=== PATIENT | male | born 1980 | race Caucasian/White ===

== ENCOUNTER 2019-01-11 12:01 | Inpatient (IN) ==
[2019-01-11 13:00] LABS: Appearance Urine Turbid (Clear); Bacteria Urine Automated Negative (Negative); Bilirubin Urine Negative (Negative); Blood Urine Negative (Negative); Color Urine Orange; Glucose Urine UA Negative (Negative); Ketones Urine Negative (Negative); Leukocyte Esterase Urine Negative (Negative); Nitrite Urine Negative (Negative); Protein Urine Trace (Negative); RBC Urine Automated 0-4 /hpf (0-4); Specific Gravity Urine 1.032 (1.000-1.030); Urobilinogen Urine Negative (Negative)
[2019-01-11 13:08] LABS: Basophils # (auto) 0.06 K/uL (0-0.2); Basophils % (auto) 0.9 %; Eosinophils # (auto) 0.06 K/uL (0-0.5); Eosinophils % (auto) 0.9 %; Hematocrit (blood only) 43.7 % (42-52); Hemoglobin 15.5 g/dL (14.0-18.0); Immature Granulocytes # (auto) 0.02 K/uL (0.00-0.02); Immature Granulocytes % (auto) 0.3 %; Lymphocytes # (auto) 2.29 K/uL (1.2-3.4); Lymphocytes % (auto) 33.4 %; Mean Corpuscular Hgb Conc 35.5 g/dL (32-36); Mean Corpuscular Volume 84.4 fL (80-100); Mean Platelet Volume 9.4 fL (7.4-10.4); Monocytes # (auto) 0.52 K/uL (0.11-0.59); Monocytes % (auto) 7.6 %; Neutrophils % (auto) 56.9 %; Platelet Count 233 K/uL (130-400); RDW Coefficient of Variation 12.4 % (11.5-14.5); RDW Standard Deviation 37.7 fL (36.4-46.3); Red Blood Count 5.18 M/uL (4.7-6.1); White Blood Count 6.85 K/uL (4.8-10.8)
[2019-01-11 13:25] LABS: Albumin Level 4.2 gm/dl (3.4-5.0); BUN Creatinine Ratio 16.3 (10-20); Calcium 9.4 mg/dl (8.5-10.1); Creatinine Clr Calc Pharmacy 107.7 ml/min; Est GFR (African American) 107.3; Est GFR (Non-African American) 92.6; Potassium 3.8 mmol/L (3.5-5.1)
[2019-01-11 13:30] LABS: Amphetamines+Metham, Urine Neg (Neg); Barbiturates, Urine Neg (Neg); Benzodiazepine, Urine Neg (Neg); Cocaine, Urine Neg (Neg); MDMA (Ecstacy), Urine Neg (Neg); Methadone, Urine Neg (Neg); Opiate, Urine Neg (Neg); Phencyclidine, Urine Neg (Neg)
[2019-01-11 13:35] LABS: Albumin Globulin Ratio 1.1 (0.9-2); Bilirubin,Total 0.7 mg/dl (0.2-1); Globulin 3.8 gm/dl (2.5-4.0)
[2019-01-11 13:41] LABS: Acetaminophen < 2 ug/ml (10-30); Salicylate < 1.7 mg/dl (2.8-20)
--- NOTE | 2019-01-11 13:44 | Emergency Department Note ---
Entered by Marcy Eastman acting as a scribe for History of Present Illness General Chief complaint: Mental Health Evaluation Stated complaint: MHID Source: patient History of Present Illness Onset (ago): week(s) 3 Location: left and right (generalized) Pain Consistency: + other (increased) Maximum Pain Intensity: 8 Quality: + other (suicidal thoughts) Associated symptoms: + other (depression) The patient is a 38 year old male who presents to the Emergency Room with complaints of increased suicidal thoughts over the last 3 weeks. The patient reports he has been under a lot of work related stress. 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 He notes he has been dealing with these emotions for a few years but it worsened 3 weeks ago. He reports he owns guns and if he is going to it's going to be quick and painless. He note he has not put much detailed thought into harming himself. He states "3 weeks ago, I was driving to work and felt that I had three choices -- to keep driving to work, turn around and end my life, or call my and tell her we need to talk." He notes he chose to call his and they had a long talk about everything that has been bothering him. Allergies Allergy/AdvReac Type Severity Reaction Status Date / Time No Known Drug Allergies Allergy Unknown . Verified 04/27/16 06:39 CAT Allergy Unknown WATTERY Uncoded 04/25/16 13:18 EYES AND SNEEZING Past Med/Surg History Medical History No significant medical problems Social History Preferred Language: Czech Communication Ability: Effective Multicultural Services Librarian Required: No Beliefs That Will Affect Care: None Feels Safe at Home: Yes Smoking Status: Never smoker Review of Systems See HPI for pertinent positives & negatives. and A total of 10 systems reviewed and were otherwise negative Physical Exam Vital Signs Vital Signs - 24 hr 01/11/19 12:07 01/11/19 13:45 Temperature 36.9 C Temperature Source Oral Sepsis Recent Fever Within 48 Hours No Sepsis Action Taken by Nursing No Action Required Pulse Rate 97 H Pulse Rate [Left Finger] 85 Respiratory Rate 18 18 Respiratory Effort / Characteristics Non-Labored Spontaneous Respiratory Depth Normal Respiratory Pattern Regular Blood Pressure 150/112 H Blood Pressure [Left Arm] 154/102 H Blood Pressure Mean 124 Blood Pressure Mean [Left Arm] 119 Blood Pressure Position [Left Arm] Sitting Pulse Oximetry 98 95 Oxygen Delivery Method Room Air GENERAL: Awake, alert, well-appearing, in no distress HENT: Normocephalic, atraumatic. EYES: Normal conjunctiva. Sclera non-icteric. RESPIRATORY: Clear to auscultation. No wheezes. Normal respiratory effort. CARDIAC: Normal rate. Normal rhythm. Extremities warm and well perfused. GI: Soft, non-distended. No tenderness to palpation RECTAL: Deferred. MUSCULOSKELETAL: Atraumatic. Chest examination reveals no tenderness. NEURO: Normal sensorium. No sensory or motor deficits noted. No facial droop. SKIN: Warm and dry. No rash or jaundice noted. PSYCH: Endorses SI. Denies HI or hallucinations. Good insight. Course 1220: The patient was evaluated in room A5. A complete history and physical exam was performed. 1445: The patient is medically cleared and has been accepted to [address] [place] [address]. Administered Medications Discontinued Medications Clonidine HCl (Catapres) 0.1 mg PO NOW ONE Stop: 01/11/19 17:07 Last Admin: 01/11/19 17:58 Dose: 0.1 mg Documented by: [id number] Medical Decision Making Differential Diagnosis Etiologies such as mood disorder, infection, hypoglycemia, electrolyte abnormalities, cardiac sources, intracerebral event, toxicologic, neurologic, as well as others were entertained. Medical Records Attestation: I reviewed the patient's medical records. Home Medications Current Medication List: was personally reviewed by me Laboratory Data Attestation: I reviewed the patient's lab results. Result diagrams: 01/11/19 12:51 01/11/19 12:51 Lab Results 01/11/19 01/11/19 01/11/19 Range/Units 12:19 12:19 12:51 WBC 6.85 (4.8-10.8) K/uL RBC 5.18 (4.7-6.1) M/uL Hgb 15.5 (14.0-18.0) g/dL Hct 43.7 (42-52) % MCV 84.4 (80-100) fL MCH 29.9 (25-34) pg MCHC 35.5 (32-36) g/dL RDW Std Deviation 37.7 (36.4-46.3) fL RDW Coeff of Mary 12.4 (11.5-14.5) % Plt Count 233 (130-400) K/uL MPV 9.4 (7.4-10.4) fL Immature Gran % (Auto) 0.3 % Neut % (Auto) 56.9 % Lymph % (Auto) 33.4 % [place] % (Auto) 7.6 % Eos % (Auto) 0.9 % Baso % (Auto) 0.9 % Immature Gran # (Auto) 0.02 (0.00-0.02) K/uL Neut # (Auto) 3.90 (1.4-6.5) K/uL Lymph # (Auto) 2.29 (1.2-3.4) K/uL [place] # (Auto) 0.52 (0.11-0.59) K/uL Eos # (Auto) 0.06 (0-0.5) K/uL Baso # (Auto) 0.06 (0-0.2) K/uL Sodium (136-145) mmol/L Potassium (3.5-5.1) mmol/L Chloride (98-107) mmol/L Carbon Dioxide (21-32) mmol/L Anion Gap (3-11) BUN (7-18) mg/dl Creatinine (0.6-1.4) mg/dl Est Cr Clr Drug Dosing ml/min Est GFR ( Amer) Est GFR (Non-Af Amer) BUN/Creatinine Ratio (10-20) Glucose (70-99) mg/dl Calcium (8.5-10.1) mg/dl Total Bilirubin (0.2-1) mg/dl AST (15-37) U/L ALT (12-78) U/L Alkaline Phosphatase (45-117) U/L Total Protein (6.4-8.2) gm/dl Albumin (3.4-5.0) gm/dl Globulin (2.5-4.0) gm/dl Albumin/Globulin Ratio (0.9-2) TSH (0.300-4.500) uIu/ml Urine Color [place] Urine Appearance Turbid A (Clear) Urine pH 5.0 (4.5-7.5) Ur Specific [place] 1.032 H (1.000-1.030) Urine Protein Trace H (Negative) Urine Glucose (UA) Negative (Negative) Urine Ketones Negative (Negative) Urine Blood Negative (Negative) Urine Nitrite Negative (Negative) Urine Bilirubin Negative (Negative) Urine Urobilinogen Negative (Negative) Ur Leukocyte Esterase Negative (Negative) Urine WBC (Auto) 1-5 (0-5) /hpf Urine RBC (Auto) 0-4 (0-4) /hpf U Hyaline Cast (Auto) 5-10 H (0-5) /lpf U Epithel Cells (Auto) 10-20 H (0-5) /lpf Urine Bacteria (Auto) Negative (Negative) Salicylates (2.8-20) mg/dl Urine Opiates Screen Neg (Neg) Ur Methadone, Qual Neg (Neg) Acetaminophen (10-30) ug/ml Urine Barbiturates Neg (Neg) Ur Phencyclidine (PCP) Neg (Neg) U Amphetamin/Meth Scrn Neg (Neg) MDMA (Ecstasy) Screen Neg (Neg) U Benzodiazepines Scrn Neg (Neg) Ur Cocaine Metabolite Neg (Neg) U Marijuana (THC) Screen Neg (Neg) Ethyl Alcohol mg/dL (0-3) mg/dl 01/11/19 01/11/19 01/11/19 Range/Units 12:51 12:51 12:51 WBC (4.8-10.8) K/uL RBC (4.7-6.1) M/uL Hgb (14.0-18.0) g/dL Hct (42-52) % MCV (80-100) fL MCH (25-34) pg MCHC (32-36) g/dL RDW Std Deviation (36.4-46.3) fL RDW Coeff of Mary (11.5-14.5) % Plt Count (130-400) K/uL MPV (7.4-10.4) fL Immature Gran % (Auto) % Neut % (Auto) % Lymph % (Auto) % [place] % (Auto) % Eos % (Auto) % Baso % (Auto) % Immature Gran # (Auto) (0.00-0.02) K/uL Neut # (Auto) (1.4-6.5) K/uL Lymph # (Auto) (1.2-3.4) K/uL [place] # (Auto) (0.11-0.59) K/uL Eos # (Auto) (0-0.5) K/uL Baso # (Auto) (0-0.2) K/uL Sodium 139 (136-145) mmol/L Potassium 3.8 (3.5-5.1) mmol/L Chloride 108 H (98-107) mmol/L Carbon Dioxide 24 (21-32) mmol/L Anion Gap 7.0 (3-11) BUN 17 (7-18) mg/dl Creatinine 1.01 (0.6-1.4) mg/dl Est Cr Clr Drug Dosing 107.7 ml/min Est GFR ( Amer) 107.3 Est GFR (Non-Af Amer) 92.6 BUN/Creatinine Ratio 16.3 (10-20) Glucose 101 H (70-99) mg/dl Calcium 9.4 (8.5-10.1) mg/dl Total Bilirubin 0.7 (0.2-1) mg/dl AST 17 (15-37) U/L ALT 46 (12-78) U/L Alkaline Phosphatase 56 (45-117) U/L Total Protein 8.0 (6.4-8.2) gm/dl Albumin 4.2 (3.4-5.0) gm/dl Globulin 3.8 (2.5-4.0) gm/dl Albumin/Globulin Ratio 1.1 (0.9-2) TSH 1.570 (0.300-4.500) uIu/ml Urine Color Urine Appearance (Clear) Urine pH (4.5-7.5) Ur Specific [place] (1.000-1.030) Urine Protein (Negative) Urine Glucose (UA) (Negative) Urine Ketones (Negative) Urine Blood (Negative) Urine Nitrite (Negative) Urine Bilirubin (Negative) Urine Urobilinogen (Negative) Ur Leukocyte Esterase (Negative) Urine WBC (Auto) (0-5) /hpf Urine RBC (Auto) (0-4) /hpf U Hyaline Cast (Auto) (0-5) /lpf U Epithel Cells (Auto) (0-5) /lpf Urine Bacteria (Auto) (Negative) Salicylates < 1.7 L (2.8-20) mg/dl Urine Opiates Screen (Neg) Ur Methadone, Qual (Neg) Acetaminophen < 2 L (10-30) ug/ml Urine Barbiturates (Neg) Ur Phencyclidine (PCP) (Neg) U Amphetamin/Meth Scrn (Neg) MDMA (Ecstasy) Screen (Neg) U Benzodiazepines Scrn (Neg) Ur Cocaine Metabolite (Neg) U Marijuana (THC) Screen (Neg) Ethyl Alcohol mg/dL < 3.0 (0-3) mg/dl Blood Pressure Blood Pressure Findings: Elevated blood pressure Blood Pressure Disposition: elevated BP felt to be situational MDM Narrative Patient is a 38-year-old gentleman presenting today with some suicidal thoughts. States she is been under a significant amount of stress in his personal life and at work and feeling suicidal for several weeks. Does not carry a formal diagnosis of depression but states he has been having it for a long time. Patient denies attempting but states he has the urge to commit suicide and is having trouble controlling himself. Denies any specific inciting event for this. Basic laboratory studies were obtained for medical clearance. Psychiatric medical case manager assisted with evaluation. Patient denies any hallucinations or HI. States he has thoughts of possibly shooting himself. Patient agreeable for voluntary inpatient treatment. Medically cleared and referrals were made for inpatient treatment.Evaluated by 3 S. and admitted there for further care of his suicidal thoughts on 201. Impression & Plan Depression, Suicidal thoughts Discharge Plan Visit Data *Final* Discharge Date/Time: 01/11/19 14:51 Chief Complaint: Mental Health Evaluation Stated Complaint: MHID ED Provider: Joshua Wilcox Discharge Problem: Depression, Suicidal thoughts Patient Disposition: Admitted As Inpatient Discharge Instructions Interventions: ED Discharge Assessment Last Done: 01/11/19 14:51 Discharge Problem: Depression Qualifiers: Depression Type: unspecified Qualified Code(s): F32.9 - Major depressive disorder, single episode, unspecified The grace's documentation has been prepared under my direction and personally reviewed by me in its entirety. I confirm that the note above accurately reflects all work, treatment, procedures, and medical decision making performed by me.
[2019-01-11] MEDS ORDERED: ALUMINUM/MAGNESIUM SUSP 30 ML UDC PO PRN (14:27)
[2019-01-11] MEDS ORDERED: ACETAMINOPHEN 325 MG TAB PO PRN (14:27)
[2019-01-11] MEDS ORDERED: SODIUM CHLORIDE 0.65% NA SOLN 45 ML (OCEAN) PRN (14:27)
[2019-01-11] MEDS ORDERED: MAGNESIUM HYDROXIDE SUSP 30 ML UDC PO PRN (14:27)
[2019-01-11] MEDS ORDERED: BISMUTH SUBSALICYLATE PER ML OMNICELL CHARGE PO PRN (14:27)
[2019-01-11] MEDS ORDERED: cloNIDine HCl 0.1 MG TAB PO ONE (17:06)
--- NOTE | 2019-01-12 08:07 | History & Physical ---
Date of Service January 12, 2019 Impression / Recommendations (1) Suicidal thoughts: 12/12 -continue voluntary hospitalization. -Suicide checks for safety. -Work on discharge safety plan. -Has firearms at home, stated plan was in place for father to remove them. Staff to confirm with father that guns are secured prior to discharge. -Refer for outpatient treatment, and review crisis plan/emergency contacts. Present on Admission?: Yes (2) Depression: 01/11 -reviewed diagnoses and treatment recommendations, including medications and therapy. -Encourage participation in groups and therapy; work on healthy coping skills. -Reviewed risks, benefits, and side effects of sertraline and gave him an UpToDate patient handout. Start 25mg daily, increase to 50mg tomorrow, and titrate as tolerated. -Refer for outpatient psychiatric care and therapy. -Family meeting with . 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 Reviewed that SSRI may damped sex drive as well. Depression Type: unspecified Qualified Code(s): F32.9 - Major depressive disorder, single episode, unspecified Present on Admission?: Yes (3) Anxiety: 01/12 - symptoms of JAYME and panic. Start SSRI as above, work on healthy coping skills, and refer to therapy. -Hydroxyzine as needed for sleep and anxiety. Present on Admission?: Yes (4) Hypertension: 01/12 -hypertensive in the emergency room, with blood pressure of 167/108 upon arrival to the unit. Received one-time dose of clonidine. Patient reports he was told in the past he had hypertension and might need medication, but does not have a PCP and has not been monitored for this. Spoke with the hospitalist, Dr. Copeland, who recommended monitoring BP today (as normalized), and trial of lisinopril 10mg if he again has HTN. He will need to be referred to PCP for outpatient treatment. Present on Admission?: Yes Inventory Assets Strengths: Willing for treatment, stable housing, supportive family Needs: Treatment for depression and hypertension, referrals for outpatient treatment Risk Factors Assessment Male: Yes : Yes Do You Have Access To A Gun?: Yes Health Problems: No Mental Health Diagnoses: Yes Substance Use Disorders: No Previous Attempt: No Family History of Suicide: Yes Previous Psychiatric Hospitalization: No Hopelessness: Yes Smoker: No Protective Factors Assessment : Yes Responsible for Young Children: Yes Employed: No (Recently closed business) Stable Relationships: Yes Supportive Family: Yes Good Rapport with Provider: No Psychiatric History Identifying Data SNEHA LOVELACE is a 38-year-old M who lives in [place] with his and 12-year-old daughter, has no medical or psychiatric history, and was admitted on 01/11/19 14:28 on a 201 voluntary commitment for depression and suicidality. Chief Complaint "I think it's anxiety and stress, and depression is a side effect of that...it's been a long time coming". History of Present Illness Patient presented to the ER 01/11/2019 reporting worsening depression and increasing suicidal thoughts over the past 3 weeks. 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 This is creating financial strain. He endorsed suicidal thoughts, stating he would want to be quick and painless, and reported owning firearms. 3 weeks prior to presentation he was driving to work and "felt that I had 3 choices: To keep driving to work, turn around and and my life, or call my and tell her we need to talk." He decided to talk to her , and disclosed how he had been struggling. He denies ever having mental health treatment, does not have a PCP, and CBC, CMP, UDS, and TSH were normal. UA was turbid with elevated specific gravity, trace protein, and 10-20 epithelial cells. He was hypertensive with BP 150/112 in the ER, and as high as 167/108 yesterday afternoon, which has now normalized after receiving a one-time dose of clonidine 0.1 mg last evening. He reported that he had been told he needed medical treatment for blood pressure and cholesterol, but had not seen a doctor because "I hate to go to doctors." Hospitalist consult was requested, but he has not yet been seen. He reports long-standing anxiety and stress for a couple of years, with recent worsening depression and suicidal thoughts over the past several weeks. He endorses sadness, crying spells, hopelessness, helplessness, self devaluation, lack of motivation, decreased sleep (5 hours of broken sleep/night, does not feel rested), and high anxiety particularly in the morning. Anxiety has also worsened over the past several weeks, feels short of breath, nauseated, with sweating, palpitations, and weakness when he wakes up. He reports thinking that "all I want to do is go back to sleep and never wake up" each morning for the past few weeks. He endorses panic attacks lasting 10-20 minutes that have occurred 2 or 3 times over the past 3 weeks. 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 He is in the process of closing his business, stating it was "either end the business or end me." He reports feeling "absolutely miserable for years," and had not been been open with others about it, until he told his 3 weeks ago. That day he had gotten out his life insurance policy and checked it "to make sure everyone would be taken care of." He says he wanted to "completely open up to her, which is really difficult for me, but if I killed myself, I wanted her to know why." They decided to talk to their families and supports "to get their ideas," but did not seek treatment and "continued to muddle through." Yesterday he felt "the inevitable weight of the world on my shoulders, a thousand concerns..." He decided suicide would be the inevitable conclusion and that he needed to get help, so came to the ER with the support of his family. He reports he has always been "very guarded" and doesn't disclose much to others, which has caused problems in his relationships, but notes mood has improved since he opened up to his . He denies ever making a suicide attempt but says he's always known that if he was going to kill himself, it would be with a gun, and that he owns multiple guns. He denies symptoms of ericka, psychosis, OCD, PTSD. 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 He says "it's an addiction" for him and started when he was 4.5 years old and he found his father's [employer] magazines, "and I realized I really liked what I saw on those pages." He describes a "build up" when he tries to abstain and feels unable to stop. He has used prostitutes in the past prior to getting , but denies other dangerous behaviors. Past Psychiatric History Previous Psych History: None Current Psychiatric Diagnosis: Depression, NOS Outpatient Services: None Previous Psych Admissions: None Do You Have Access To A Gun?: Yes History of Previous Suicide Attempt: No Past Medication Trials: None Allergies Allergy/AdvReac Type Severity Reaction Status Date / Time No Known Drug Allergies Allergy Unknown . Verified 04/27/16 06:39 CAT Allergy Unknown WATTERY Uncoded 04/25/16 13:18 EYES AND SNEEZING Family History Family History of: Suicide Completion Family Mental Health History Comment: Uncle completed suicide with a gun Alcohol History Hx of Alcohol Use Over the Past 12 Months: No AUDIT Total Score: 0 Smoking Use Have You Smoked or Used Tobacco Products in the Last 30 Days: No Smoking Status: Never smoker Substance History Hx of Prescription Med Misuse Over the Past 12 Months: No Hx of Over the Counter Med Misuse Over the Past 12 Months: No Hx of Inhalent Misuse Over the Past 12 Months: No Hx of Organic Substance Use Over the Past 12 Months: No Hx of Illegal Substances/Street Drug Use Over Past 12 Months: No Problems as a Result of Past Substance Use: None Identified Personal History Living Arrangements: Home Living Arrangements Comments: In [place] with and 12-year-old daughter Childhood: Grew up in [place], raised by both parents and has 1 older brother. Highest Grade Completed: College (BA from [employer] in history) Employment Status: Unemployed Marital Status: Number Of Children: 12-year-old daughter Beliefs That Will Affect Care: None Current Legal Problems: No Hx Legal Problems: No Hx Traumatic Life Events: No Patient History Medical History No significant medical problems Social History Preferred Language: Sami Communication Ability: Effective Wool Classer Required: No Beliefs That Will Affect Care: None Feels Safe at Home: Yes Smoking Status: Never smoker Review of Systems Review of Systems: All systems reviewed & are unremarkable except as noted in HPI & below Physical Exam Psychiatric: Orientation: alert, oriented x 3 and cooperative Apperance: appropriately dressed and appropriately groomed Eye Contact: + fair eye contact Motor Behavior: steady gait and station and no abnormal motor movements Speech: normal rate/rhythm/volume of speech Affect: + depressed affect and + anxious affect Mood: + depressed mood and + anxious mood Thought Process: goal directed thought process Thought Content: reality based without delusions Suicidal Thoughts: + reports suicidal thoughts Homicidal Thoughts: denies homicidal thoughts Hallucinations: no auditory hallucinations and no visual hallucinations Cognition: recent memory grossly intact, remote memory grossly intact, attention grossly intact and language grossly intact Estimated Intelligence: consistent with education level Insight: + fair insight Judgement: + fair judgement Vital Signs (Past 24 Hours): Last Vital Signs Temp 36.4 C L 01/12/19 06:44 Pulse 86 01/12/19 06:45 Resp 18 01/12/19 06:44 BP 126/89 01/12/19 06:45 Pulse Ox 97 01/11/19 14:51 Exam Statement: A physical exam was performed in the ER prior to admission to the unit by Dr. Joshua Wilcox. I accept that physical as correct/medical clearance for the inpatient physical exam. Results & Data Laboratory Results Laboratory Results - last 24 hr 01/11/19 01/11/19 01/11/19 12:19 12:19 12:51 WBC 6.85 RBC 5.18 Hgb 15.5 Hct 43.7 MCV 84.4 MCH 29.9 MCHC 35.5 RDW Std Deviation 37.7 RDW Coeff of Mary 12.4 Plt Count 233 MPV 9.4 Immature Gran % (Auto) 0.3 Neut % (Auto) 56.9 Lymph % (Auto) 33.4 [place] % (Auto) 7.6 Eos % (Auto) 0.9 Baso % (Auto) 0.9 Immature Gran # (Auto) 0.02 Neut # (Auto) 3.90 Lymph # (Auto) 2.29 [place] # (Auto) 0.52 Eos # (Auto) 0.06 Baso # (Auto) 0.06 Sodium Potassium Chloride Carbon Dioxide Anion Gap BUN Creatinine Est Cr Clr Drug Dosing Est GFR ( Amer) Est GFR (Non-Af Amer) BUN/Creatinine Ratio Glucose Calcium Total Bilirubin AST ALT Alkaline Phosphatase Total Protein Albumin Globulin Albumin/Globulin Ratio TSH Urine Color [place] Urine Appearance Turbid A Urine pH 5.0 Ur Specific [place] 1.032 H Urine Protein Trace H Urine Glucose (UA) Negative Urine Ketones Negative Urine Blood Negative Urine Nitrite Negative Urine Bilirubin Negative Urine Urobilinogen Negative Ur Leukocyte Esterase Negative Urine WBC (Auto) 1-5 Urine RBC (Auto) 0-4 U Hyaline Cast (Auto) 5-10 H U Epithel Cells (Auto) 10-20 H Urine Bacteria (Auto) Negative Salicylates Urine Opiates Screen Neg Ur Methadone, Qual Neg Acetaminophen Urine Barbiturates Neg Ur Phencyclidine (PCP) Neg U Amphetamin/Meth Scrn Neg MDMA (Ecstasy) Screen Neg U Benzodiazepines Scrn Neg Ur Cocaine Metabolite Neg U Marijuana (THC) Screen Neg Ethyl Alcohol mg/dL 01/11/19 01/11/19 01/11/19 12:51 12:51 12:51 WBC RBC Hgb Hct MCV MCH MCHC RDW Std Deviation RDW Coeff of Mary Plt Count MPV Immature Gran % (Auto) Neut % (Auto) Lymph % (Auto) [place] % (Auto) Eos % (Auto) Baso % (Auto) Immature Gran # (Auto) Neut # (Auto) Lymph # (Auto) [place] # (Auto) Eos # (Auto) Baso # (Auto) Sodium 139 Potassium 3.8 Chloride 108 H Carbon Dioxide 24 Anion Gap 7.0 BUN 17 Creatinine 1.01 Est Cr Clr Drug Dosing 107.7 Est GFR ( Amer) 107.3 Est GFR (Non-Af Amer) 92.6 BUN/Creatinine Ratio 16.3 Glucose 101 H Calcium 9.4 Total Bilirubin 0.7 AST 17 ALT 46 Alkaline Phosphatase 56 Total Protein 8.0 Albumin 4.2 Globulin 3.8 Albumin/Globulin Ratio 1.1 TSH 1.570 Urine Color Urine Appearance Urine pH Ur Specific [place] Urine Protein Urine Glucose (UA) Urine Ketones Urine Blood Urine Nitrite Urine Bilirubin Urine Urobilinogen Ur Leukocyte Esterase Urine WBC (Auto) Urine RBC (Auto) U Hyaline Cast (Auto) U Epithel Cells (Auto) Urine Bacteria (Auto) Salicylates < 1.7 L Urine Opiates Screen Ur Methadone, Qual Acetaminophen < 2 L Urine Barbiturates Ur Phencyclidine (PCP) U Amphetamin/Meth Scrn MDMA (Ecstasy) Screen U Benzodiazepines Scrn Ur Cocaine Metabolite U Marijuana (THC) Screen Ethyl Alcohol mg/dL < 3.0 Current Inpatient Medications Current Inpatient Medications: Current Inpatient Medications Acetaminophen (Tylenol) 650 mg PO Q4H PRN PRN Reason: Headache or Minor Fever Stop: 02/10/19 14:26 Al Hydrox/Mg Hydrox/Simethicone (Maalox) 30 ml PO Q4H PRN PRN Reason: GI Upset Stop: 02/10/19 14:26 Bismuth Subsalicylate (Kaopectate) 15 ml PO PRN PRN PRN Reason: Loose Stool Stop: 02/10/19 14:26 Hydroxyzine HCl (Vistaril) 50 mg PO HSZ PRN PRN Reason: Insomnia Stop: 02/10/19 14:26 Hydroxyzine HCl (Vistaril) 25 mg PO Q4H PRN PRN Reason: Anxiety Stop: 02/10/19 14:26 Magnesium Hydroxide (Milk Of Magnesia) 30 ml PO DAILY PRN PRN Reason: Heartburn Stop: 02/10/19 14:26 Sodium Chloride ([place] Nasal) 1 - 2 sprays NA PRN PRN PRN Reason: Nasal Dryness/Congestion Stop: 02/10/19 14:26 CPT Code CPT Code Initial Hospital Care: [id number]
[2019-01-12] MEDS ORDERED: SERTRALINE HCL 50 MG TABLET PO ONE (10:46)
[2019-01-13] MEDS: SERTRALINE HCL 50 MG TABLET PO SCH (08:16)
[2019-01-13] MEDS: LISINOPRIL 10 MG TAB PO SCH (10:47)
--- NOTE | 2019-01-13 10:55 | Psychiatric Progress Note ---
Date of Service January 13, 2019 Impression / Recommendations Impression 38-year-old male admitted voluntarily for worsening depression, anxiety and suicidal ideation. Participated in family meeting with yesterday. 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 Encouraged hydroxyzine as needed for anxiety. Continue sertraline titration as tolerated; received first 50mg dose this morning. Inpatient psychiatric hospitalization is medically necessary given ongoing outpatient stressors, need for further medication adjustments, and need to observe for improvement in mood and anxiety. Pt remains at high risk of harm to self if discharged prematurely. (1) Suicidal thoughts: 01/12 -continue voluntary hospitalization. -Suicide checks for safety. -Work on discharge safety plan. -Has firearms at home, stated plan was in place for father to remove them. Staff to confirm with father that guns are secured prior to discharge. -Refer for outpatient treatment, and review crisis plan/emergency contacts. (2) Depression: 01/12 -reviewed diagnoses and treatment recommendations, including medicat ions and therapy. -Encourage participation in groups and therapy; work on healthy coping skills. -Reviewed risks, benefits, and side effects of sertraline and gave him an UpToDate patient handout. Start 25mg daily, increase to 50mg tomorrow, and titrate as tolerated. -Refer for outpatient psychiatric care and therapy. -Family meeting with . 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 Reviewed that SSRI may damped sex drive as well. 01/13 - Continue sertraline at 50mg qAM - consider further titration - family meeting with yesterday, supportive but ongoing discussion and collaboration will be necessary (3) Anxiety: 01/12 - symptoms of JAYME and panic. Start SSRI as above, work on healthy coping skills, and refer to therapy. -Hydroxyzine as needed for sleep and anxiety. 01/13 - Reviewed available hydroxyzine for anxiety and sleep - Suggested prn hydroxyzine for sleep tonight, as slept only two hours last evening (4) Hypertension: 01/12 -hypertensive in the emergency room, with blood pressure of 167/108 upon arrival to the unit. Received one-time dose of clonidine. Patient reports he was told in the past he had hypertension and might need medication, but does not have a PCP and has not been monitored for this. Spoke with the hospitalist, Dr. Copeland, who recommended monitoring BP today (as normalized), and trial of lisinopril 10mg if he again has HTN. He will need to be referred to PCP for outpatient treatment. 01/13 - Pt started on lisinopril 10mg starting this morning - continue to monitor BP, titrate lisinopril as needed Inventory Assets Strengths: Willing for treatment, stable housing, supportive family Needs: Treatment for depression and hypertension, referrals for outpatient treatment Risk Factors Assessment Male: Yes : Yes Do You Have Access To A Gun?: Yes Health Problems: No Mental Health Diagnoses: Yes Substance Use Disorders: No Previous Attempt: No Family History of Suicide: Yes Previous Psychiatric Hospitalization: No Hopelessness: Yes Smoker: No Protective Factors Assessment : Yes Responsible for Young Children: Yes Employed: No (Recently closed business) Stable Relationships: Yes Supportive Family: Yes Good Rapport with Provider: No Interval History Identifying Information SNEHA LOVELACE is a 38-year-old M who lives in [place] with his and 12-year-old daughter, has no medical or psychiatric history, and was admitted on 01/11/19 14:28 on a 201 voluntary commitment for depression and suicidality. Chief Complaint "Um, yesterday was ok. I'll tell you, I had a terrible sleep last night. One of the three worst nights of sleep in my life." Review of Systems Notes Constitutional: reports receiving only 2 hours of sleep last night; denies fatigue presently Cardiovascular: denied Respiratory: denied Gastrointestinal: denied Neurological: denied Psychiatric: denies symptoms other than stated above Total of at least 10 systems reviewed, pertinent positives as above and in HPI. Sleep Information Total Hours of Sleep: 7.25 Sleep Comments: pt on q-15 minute checks Meal Information Percent Meal Consumed - Breakfast: 100 Percent Meal Consumed - Lunch: 100 Percent Meal Consumed - Dinner: 100 Subjective Subjective Patient was seen & assessed and interval progress reviewed with Treatment Team. Staff reports the patient participated in a family meeting with his yesterday. was supportive overall, but was described to be somewhat withdrawn as well. Patient's business will be closing, and will be handling affairs until patient feels capable. Patient was seen today to assess progress since admission. He states that he had a rather decent day yesterday, but sleep last evening was not good. Patient reports receiving a total of 2 hours of sleep, feeling he was overly anxious "could not hold onto any thoughts." Reviewed hydroxyzine is an available medication for anxiety as needed. Encouraged patient to continue to monitor sleep, the patient was understanding that this may not be a reaction to the initiation of sertraline. Patient admits to this provider that he is experiencing increased anxiety today, as it is "the first business day since I have been here." Patient is concerned about his customers reactions when they learned that his business is closing, but feels he was able to avoid this anxiety previously as it was the weekend. Patient was agreeable to utilizing as needed hydroxyzine throughout the day for this purpose as well. Reviewed plan to initiate lisinopril to manage persistent hypertension. Patient was agreeable to this medication change as previously discussed. Patient denies SI today, but does admit that his mood and anxiety have worsened somewhat. Patient denies any other specific needs or concerns at this time. Physical Exam Psychiatric Orientation: alert, oriented x 3 and cooperative Apperance: appropriately dressed and appropriately groomed Eye Contact: good eye contact Motor Behavior: steady gait and station and no abnormal motor movements Speech: normal rate/rhythm/volume of speech Affect: + anxious affect Mood: + anxious mood ("I am noticing that I am a lot more anxious today") Thought Process: goal directed thought process and clear/coherent thought process Thought Content: reality based without delusions Suicidal Thoughts: denies suicidal thoughts Homicidal Thoughts: denies homicidal thoughts Hallucinations: no auditory hallucinations and no visual hallucinations Cognition: attention grossly intact and language grossly intact Estimated Intelligence: consistent with education level Insight: + fair insight Judgement: + fair judgement Vital Signs (Past 24 Hours) Last Vital Signs Temp 36.7 C 01/13/19 06:47 Pulse 99 H 01/13/19 06:48 Resp 18 01/13/19 06:47 BP 142/110 H 01/13/19 06:48 Pulse Ox 97 01/11/19 14:51 Results & Data Current Inpatient Medications Current Inpatient Medications: Current Inpatient Medications Acetaminophen (Tylenol) 650 mg PO Q4H PRN PRN Reason: Headache or Minor Fever Stop: 02/10/19 14:26 Al Hydrox/Mg Hydrox/Simethicone (Maalox) 30 ml PO Q4H PRN PRN Reason: GI Upset Stop: 02/10/19 14:26 Bismuth Subsalicylate (Kaopectate) 15 ml PO PRN PRN PRN Reason: Loose Stool Stop: 02/10/19 14:26 Hydroxyzine HCl (Vistaril) 50 mg PO HSZ PRN PRN Reason: Insomnia Stop: 02/10/19 14:26 Hydroxyzine HCl (Vistaril) 25 mg PO Q4H PRN PRN Reason: Anxiety Stop: 02/10/19 14:26 Lisinopril (Zestril) 10 mg PO QAM [facility] Stop: 02/12/19 09:14 Magnesium Hydroxide (Milk Of Magnesia) 30 ml PO DAILY PRN PRN Reason: Heartburn Stop: 02/10/19 14:26 Sertraline HCl (Zoloft) 50 mg PO QAM [facility] Stop: 02/12/19 08:59 Last Admin: 01/13/19 08:16 Dose: 50 mg Documented by: Sodium Chloride ([place] Nasal) 1 - 2 sprays NA PRN PRN PRN Reason: Nasal Dryness/Congestion Stop: 02/10/19 14:26 Post Discharge Appointments Primary Care Physician Name Of Family Doctor: none CPT Code CPT Code 63086 (1) Depression Depression Type: unspecified Qualified Code(s): F32.9 - Major depressive disorder, single episode, unspecified
[2019-01-14] MEDS: LISINOPRIL 10 MG TAB PO SCH (07:54)
[2019-01-14] MEDS: SERTRALINE HCL 50 MG TABLET PO SCH (07:54)
--- NOTE | 2019-01-14 09:17 | Psychiatric Progress Note ---
Date of Service January 14, 2019 Impression / Recommendations Impression Patient is reporting some improvement in mood. 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 Patient has noticed some benefit from as needed hydroxyzine for anxiety. We will increase at bedtime dose to 100 mg as patient continues to have difficulty sleeping, and 50 mg dosage last evening was only minimally beneficial. Patient was also agreeable to increasing his dose of sertraline to 100 mg daily. He will receive an additional 50 mg dose at lunch today to reach this total. Encouraged patient to focus on safety and discharge planning at this time. He still requires aftercare appointments with a therapist and psychiatric prescriber be solidified. Inpatient psychiatric hospitalization is medically necessary given ongoing outpatient stressors, need for further medication adjustments, and need to observe for improvement in mood and anxiety. Pt remains at high risk of harm to self if discharged prematurely. (1) Suicidal thoughts: 01/12 -continue voluntary hospitalization. -Suicide checks for safety. -Work on discharge safety plan. -Has firearms at home, stated plan was in place for father to remove them. Staff to confirm with father that guns are secured prior to discharge. -Refer for outpatient treatment, and review crisis plan/emergency contacts. 01/14 - denies SI, admitting to ongoing anxiety related to situational stressors, but feeling better able to manage (2) Depression: 01/12 -reviewed diagnoses and treatment recommendations, including medications and therapy. -Encourage participation in groups and therapy; work on healthy coping skills. -Reviewed risks, benefits, and side effects of sertraline and gave him an UpToDate patient handout. Start 25mg daily, increase to 50mg tomorrow, and titrate as tolerated. -Refer for outpatient psychiatric care and therapy. -Family meeting with . 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 Reviewed that SSRI may damped sex drive as well. 01/13 - Continue sertraline at 50mg qAM - consider further titration - family meeting with yesterday, supportive but ongoing discussion and collaboration will be necessary 01/14 - Pt received additional 50mg of sertraline with lunch; increasing morning dose to 100mg tomorrow - Encouraged patient to complete safety plan in preparation for discharge - Solidify psychiatric aftercare (3) Anxiety: 01/12 - symptoms of JAYME and panic. Start SSRI as above, work on healthy coping skills, and refer to therapy. -Hydroxyzine as needed for sleep and anxiety. 01/13 - Reviewed available hydroxyzine for anxiety and sleep - Suggested prn hydroxyzine for sleep tonight, as slept only two hours last evening 01/14 - Titrating sertraline as above (4) Hypertension: 01/12 -hypertensive in the emergency room, with blood pressure of 167/108 up on arrival to the unit. Received one-time dose of clonidine. Patient reports he was told in the past he had hypertension and might need medication, but does not have a PCP and has not been monitored for this. Spoke with the hospitalist, Dr. Copeland, who recommended monitoring BP today (as normalized), and trial of lisinopril 10mg if he again has HTN. He will need to be referred to PCP for outpatient treatment. 01/13 - Pt started on lisinopril 10mg starting this morning - continue to monitor BP, titrate lisinopril as needed Inventory Assets Strengths: Willing for treatment, stable housing, supportive family Needs: Treatment for depression and hypertension, referrals for outpatient treatment Risk Factors Assessment Male: Yes : Yes Do You Have Access To A Gun?: Yes Health Problems: No Mental Health Diagnoses: Yes Substance Use Disorders: No Previous Attempt: No Family History of Suicide: Yes Previous Psychiatric Hospitalization: No Hopelessness: Yes Smoker: No Protective Factors Assessment : Yes Responsible for Young Children: Yes 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 Chief Complaint "I did take some of the Vistaril yesterday, and could not have hurt. But I do think it helped a little bit." Review of Systems Notes Constitutional: reports poor sleep last evening Cardiovascular: denied Respiratory: denied Gastrointestinal: Reports episodic loose stools Neurological: denied Psychiatric: denies symptoms other than stated above Total of at least 10 systems reviewed, pertinent positives as above and in HPI. Sleep Information Total Hours of Sleep: 7.25 Sleep Comments: pt given vistaril per rn. pt on q-15 minute checks Meal Information Percent Meal Consumed - Breakfast: 100 Percent Meal Consumed - Lunch: 100 Percent Meal Consumed - Dinner: 75 Subjective Subjective Patient was seen & assessed and interval progress reviewed with Nursing. Staff reports the patient has been showing some improvement. It is been confirmed that guns in the home have been secured, and his and children visited last evening. Patient was seen today to assess progress since admission. He states he is feeling better, but did have poor sleep began last evening. Patient did take 50 mg of hydroxyzine, which was only somewhat effective to encourage sleep. Patient states sleep has not been a chronic problem for him, it was agreeable to a higher dose of hydroxyzine tonight. He was also agreeable to increasing his dose of sertraline to 150 mg. Patient does admit to loose stools and some mild GI discomfort since starting the medication, which was reportedly improved today. Otherwise, patient denies any concerns with medications. He states that he is feeling closer to being ready for discharge and feeling able to take on his outpatient stressors. Patient denies suicidal ideation, as well as other needs or concerns at this time. Physical Exam Psychiatric Orientation: alert, oriented x 3 and cooperative Apperance: appropriately dressed and appropriately groomed Eye Contact: good eye contact Motor Behavior: steady gait and station and no abnormal motor movements Speech: normal rate/rhythm/volume of speech Affect: + anxious affect (Mildly); no depressed affect Mood: + anxious mood "Still a little anxious about everything" Thought Process: goal directed thought process and clear/coherent thought process Thought Content: reality based without delusions Suicidal Thoughts: denies suicidal thoughts Homicidal Thoughts: denies homicidal thoughts Hallucinations: no auditory hallucinations and no visual hallucinations Cognition: remote memory grossly intact, attention grossly intact and language grossly intact Estimated Intelligence: consistent with education level Insight: + fair insight Judgement: + fair judgement Vital Signs (Past 24 Hours) Last Vital Signs Temp 36.5 C 01/14/19 06:54 Pulse 82 01/14/19 06:55 Resp 18 01/14/19 06:54 BP 132/94 01/14/19 06:55 Pulse Ox 97 01/11/19 14:51 Results & Data Current Inpatient Medications Current Inpatient Medications: Current Inpatient Medications Acetaminophen (Tylenol) 650 mg PO Q4H PRN PRN Reason: Headache or Minor Fever Stop: 02/10/19 14:26 Al Hydrox/Mg Hydrox/Simethicone (Maalox) 30 ml PO Q4H PRN PRN Reason: GI Upset Stop: 02/10/19 14:26 Bismuth Subsalicylate (Kaopectate) 15 ml PO PRN PRN PRN Reason: Loose Stool Stop: 02/10/19 14:26 Hydroxyzine HCl (Vistaril) 50 mg PO HSZ PRN PRN Reason: Insomnia Stop: 02/10/19 14:26 Last Admin: 01/13/19 21:55 Dose: 50 mg Documented by: Hydroxyzine HCl (Vistaril) 25 mg PO Q4H PRN PRN Reason: Anxiety Stop: 02/10/19 14:26 Last Admin: 01/14/19 09:01 Dose: 25 mg Documented by: Lisinopril (Zestril) 10 mg PO QAM [facility] Stop: 02/12/19 09:14 Last Admin: 01/14/19 07:54 Dose: 10 mg Documented by: Magnesium Hydroxide (Milk Of Magnesia) 30 ml PO DAILY PRN PRN Reason: Heartburn Stop: 02/10/19 14:26 Sertraline HCl (Zoloft) 50 mg PO QAM [facility] Stop: 02/12/19 08:59 Last Admin: 01/14/19 07:54 Dose: 50 mg Documented by: Sodium Chloride ([place] Nasal) 1 - 2 sprays NA PRN PRN PRN Reason: Nasal Dryness/Congestion Stop: 02/10/19 14:26 Post Discharge Appointments Primary Care Physician Name Of Family Doctor: [facility] Date of Appointment with PCP: 01/20/19 Time of Appointment with PCP: 1:30 p.m. Provider Appointment Comment: [place] [address] Contact Information Discharge Discharge Address: [address] [place], [place] [address] [address] CPT Code CPT Code 11604 (1) Depression Depression Type: unspecified Qualified Code(s): F32.9 - Major depressive d isorder, single episode, unspecified
[2019-01-14] MEDS ORDERED: SERTRALINE HCL 50 MG TABLET PO ONE (12:30)
[2019-01-15] MEDS: LISINOPRIL 10 MG TAB PO SCH (08:21)
[2019-01-15] MEDS ORDERED: SERTRALINE HCL 100 MG TABLET PO SCH (09:00)
--- NOTE | 2019-01-15 09:54 | Discharge Summary ---
Date of Service January 15, 2019 History of Present Illness Patient presented to the ER 01/11/2019 reporting worsening depression and increasing suicidal thoughts over the past 3 weeks. 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 This is creating financial strain. He endorsed suicidal thoughts, stating he would want to be quick and painless, and reported owning firearms. 3 weeks prior to presentation he was driving to work and "felt that I had 3 choices: To keep driving to work, turn around and and my life, or call my and tell her we need to talk." He decided to talk to her , and disclosed how he had been struggling. He denies ever having mental health treatment, does not have a PCP, and CBC, CMP, UDS, and TSH were normal. UA was turbid with elevated specific gravity, trace protein, and 10-20 epithelial c ells. He was hypertensive with BP 150/112 in the ER, and as high as 167/108 yesterday afternoon, which has now normalized after receiving a one-time dose of clonidine 0.1 mg last evening. He reported that he had been told he needed medical treatment for blood pressure and cholesterol, but had not seen a doctor because "I hate to go to doctors." Hospitalist consult was requested, but he has not yet been seen. He reports long-standing anxiety and stress for a couple of years, with recent worsening depression and suicidal thoughts over the past several weeks. He endorses sadness, crying spells, hopelessness, helplessness, self devaluation, lack of motivation, decreased sleep (5 hours of broken sleep/night, does not feel rested), and high anxiety particularly in the morning. Anxiety has also worsened over the past several weeks, feels short of breath, nauseated, with sweating, palpitations, and weakness when he wakes up. He reports thinking that "all I want to do is go back to sleep and never wake up" each morning for the past few weeks. He endorses panic attacks lasting 10-20 minutes that have occurred 2 or 3 times over the past 3 weeks. 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 He is in the process of closing his business, stating it was "either end the business or end me." He reports feeling "absolutely miserable for years," and had not been been open with others about it, until he told his 3 weeks ago. That day he had gotten out his life insurance policy and checked it "to make sure everyone would be taken care of." He says he wanted to "completely open up to her, which is really difficult for me, but if I killed myself, I wanted her to know why." They decided to talk to their families and supports "to get their ideas," but did not seek treatment and "continued to muddle through." Yesterday he felt "the inevitable weight of the world on my shoulders, a thousand concerns..." He decided suicide would be the inevitable conclusion and that he needed to get help, so came to the ER with the support of his family. He reports he has always been "very guarded" and doesn't disclose much to others, which has caused problems in his relationships, but notes mood has improved since he opened up to his . He denies ever making a suicide attempt but says he's always known that if he was going to kill himself, it would be with a gun, and that he owns multiple guns. He denies symptoms of ericka, psychosis, OCD, PTSD. 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 He says "it's an addiction" for him and started when he was 4.5 years old and he found his father's [employer] deepa arita, "and I realized I really liked what I saw on those pages." He describes a "build up" when he tries to abstain and feels unable to stop. He has used prostitutes in the past prior to getting , but denies other dangerous behaviors. Physical Exam Psychiatric Orientation: alert, oriented x 3 and cooperative Apperance: appropriately dressed, appropriately groomed and appeared stated age Eye Contact: good eye contact Motor Behavior: steady gait and station and no abnormal motor movements Speech: normal rate/rhythm/volume of speech Affect: euthymic affect and mood congruent with affect Mood: no depressed mood and no anxious mood Thought Process: goal directed thought process Thought Content: reality based without delusions Suicidal Thoughts: + reports suicidal thoughts Homicidal Thoughts: + reports homicidal thoughts Hallucinations: no auditory hallucinations Cognition: recent memory grossly intact, attention grossly intact and language grossly intact Estimated Intelligence: consistent with education level Insight: good insight Judgement: good judgement Vital Signs (Past 24 Hours) Last Vital Signs Temp 36.6 C 01/15/19 09:41 Pulse 97 H 01/15/19 09:41 Resp 18 01/15/19 09:41 BP 130/92 01/15/19 09:41 Pulse Ox 97 01/15/19 09:41 Principal Diagnosis Major depressive disorder, single episode, severe without psychosis Hypertension Psychiatric Data The patient was hospitalized at [facility] for 4 days. He was started on sertraline for depression, which he tolerated well; the dose was increased to 100 mg daily. He was also started on lisinopril for hypertension, and was referred to a PCP at [facility]. He tried hydroxyzine 50-100 mg at bedtime for sleep, but did not feel it was effective, reporting delay of sleep onset and frequent nighttime awakening. He requested a different sleep medication, and agreed to a trial of trazodone. He attended and participated in groups and therapy, and completed his discharge safety plan. He had a family meeting with his on 01/12/2019, during which they discussed his work stressors, and decision to close his business. His said she was supportive, and although they are dealing with multiple stressors, both were committed to the marriage. They discussed frustration with their insurance and difficulty getting outpatient treatment. Safety concerns were reviewed, and family confirmed that the patient's guns have been removed from the home until he stabilizes. Due to insurance barriers, he was referred to [facility] for PCP, therapy, and psychiatric care, and appointments with a psychiatrist and therapist were not yet scheduled at the time of discharge. Day of Discharge Assessment Staff report the patient is attending and participating in groups, is reporting improvement in mood and anxiety and denying suicidal thoughts, and is performing ADLs independently. On my assessment, the patient states he is "so much better, " stating that mood has improved and anxiety has been reduced. He denies side effects to medication and thinks that they are helping. He would like to try different medication for sleep, as he does not think hydroxyzine has been helpful, and discussed a trial of trazodone at his request. He feels it has been very helpful to talk to staff and work on coping skills. He denies suicidal thoughts and is able to review his safety plan. He states he is now able to think about his stressors without ruminating on the thoughts and the resulting decrease in mood, and that this thoughts more easily "slide off my brain." He is looking forward to going home, stating he plans to spend the next couple of weeks doing home improvement projects with his father, and spending time with his and daughter. He is requesting discharge, and denies any safety concerns with leaving the hospital. 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 Risk Factors Assessment Risk factors were mitigated by admission to the inpatient unit, use of medications to target sleep, depression, and anxiety, treating medical conditions, involving him in groups and therapy, working on healthy coping s kills and a discharge safety plan, family meeting with his , reviewing recommendations with the family that firearms be removed until he stabilizes, and referring him for outpatient treatment with a PCP, psychiatrist, and therapist. The patient is reporting improvement in mood and anxiety symptoms and resolution of suicidal thoughts. He is completing ADLs independently, taking medications as prescribed, and indicates willingness to follow up as an outpatient. He is requesting discharge, and is he is no longer at acute risk of harm to himself, can be managed as an outpatient at this time. Male: Yes : Yes Do You Have Access To A Gun?: Yes Health Problems: No Mental Health Diagnoses: Yes Substance Use Disorders: No Previous Attempt: No Family History of Suicide: Yes Previous Psychiatric Hospitalization: No Hopelessness: Yes Smoker: No Protective Factors Assessment : Yes Responsible for Young Children: Yes Employed: No (Recently closed business) Stable Relationships: Yes Supportive Family: Yes Good Rapport with Provider: No Tobacco Cessation at Discharge Tobacco Cessation Medication Prescribed at Discharge: Not Applicable/Non-Smoker Total Time Total Time Spent: Greater Than 30 Minutes Total Time Includes: Examination of the patient, Discharge Planning and Medication Reconciliation Discharge Data Consultations 01/11/19 14:52 ED Decision to Admit Stat Lab Results 01/11/19 01/11/19 01/11/19 12:19 12:19 12:51 WBC 6.85 RBC 5.18 Hgb 15.5 Hct 43.7 MCV 84.4 MCH 29.9 MCHC 35.5 RDW Std Deviation 37.7 RDW Coeff of Mary 12.4 Plt Count 233 MPV 9.4 Immature Gran % (Auto) 0.3 Neut % (Auto) 56.9 Lymph % (Auto) 33.4 [place] % (Auto) 7.6 Eos % (Auto) 0.9 Baso % (Auto) 0.9 Immature Gran # (Auto) 0.02 Neut # (Auto) 3.90 Lymph # (Auto) 2.29 [place] # (Auto) 0.52 Eos # (Auto) 0.06 Baso # (Auto) 0.06 Sodium Potassium Chloride Carbon Dioxide Anion Gap BUN Creatinine Est Cr Clr Drug Dosing Est GFR ( Amer) Est GFR (Non-Af Amer) BUN/Creatinine Ratio Glucose Calcium Total Bilirubin AST ALT Alkaline Phosphatase Total Protein Albumin Globulin Albumin/Globulin Ratio TSH Urine Color [place] Urine Appearance Turbid A Urine pH 5.0 Ur Specific [place] 1.032 H Urine Protein Trace H Urine Glucose (UA) Negative Urine Ketones Negative Urine Blood Negative Urine Nitrite Negative Urine Bilirubin Negative Urine Urobilinogen Negative Ur Leukocyte Esterase Negative Urine WBC (Auto) 1-5 Urine RBC (Auto) 0-4 U Hyaline Cast (Auto) 5-10 H U Epithel Cells (Auto) 10-20 H Urine Bacteria (Auto) Negative Salicylates Urine Opiates Screen Neg Ur Methadone, Qual Neg Acetaminophen Urine Barbiturates Neg Ur Phencyclidine (PCP) Neg U Amphetamin/Meth Scrn Neg MDMA (Ecstasy) Screen Neg U Benzodiazepines Scrn Neg Ur Cocaine Metabolite Neg U Marijuana (THC) Screen Neg Ethyl Alcohol mg/dL 01/11/19 01/11/19 01/11/19 12:51 12:51 12:51 WBC RBC Hgb Hct MCV MCH MCHC RDW Std Deviation RDW Coeff of Mary Plt Count MPV Immature Gran % (Auto) Neut % (Auto) Lymph % (Auto) [place] % (Auto) Eos % (Auto) Baso % (Auto) Immature Gran # (Auto) Neut # (Auto) Lymph # (Auto) [place] # (Auto) Eos # (Auto) Baso # (Auto) Sodium 139 Potassium 3.8 Chloride 108 H Carbon Dioxide 24 Anion Gap 7.0 BUN 17 Creatinine 1.01 Est Cr Clr Drug Dosing 107.7 Est GFR ( Amer) 107.3 Est GFR (Non-Af Amer) 92.6 BUN/Creatinine Ratio 16.3 Glucose 101 H Calcium 9.4 Total Bilirubin 0.7 AST 17 ALT 46 Alkaline Phosphatase 56 Total Protein 8.0 Albumin 4.2 Globulin 3.8 Albumin/Globulin Ratio 1.1 TSH 1.570 Urine Color Urine Appearance Urine pH Ur Specific [place] Urine Protein Urine Glucose (UA) Urine Ketones Urine Blood Urine Nitrite Urine Bilirubin Urine Urobilinogen Ur Leukocyte Esterase Urine WBC (Auto) Urine RBC (Auto) U Hyaline Cast (Auto) U Epithel Cells (Auto) Urine Bacteria (Auto) Salicylates < 1.7 L Urine Opiates Screen Ur Methadone, Qual Acetaminophen < 2 L Urine Barbiturates Ur Phencyclidine (PCP) U Amphetamin/Meth Scrn MDMA (Ecstasy) Screen U Benzodiazepines Scrn Ur Cocaine Metabolite U Marijuana (THC) Screen Ethyl Alcohol mg/dL < 3.0 Hospital Course (1) Suicidal thoughts: 01/12 -continue voluntary hospitalization. -Suicide checks for safety. -Work on discharge safety plan. -Has firearms at home, stated plan was in place for father to remove them. Staff to confirm with father that guns are secured prior to discharge. -Refer for outpatient treatment, and review crisis plan/emergency contacts. 01/14 - denies SI, admitting to ongoing anxiety related to situational stressors, but feeling better able to manage (2) Depression: 01/12 -reviewed diagnoses and treatment recommendations, including medications and therapy. -Encourage participation in groups and therapy; work on healthy coping skills. -Reviewed risks, benefits, and side effects of sertraline and gave him an UpToDate patient handout. Start 25mg daily, increase to 50mg tomorrow, and titrate as tolerated. -Refer for outpatient psychiatric care and therapy. -Family meeting with . 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 Reviewed that SSRI may damped sex drive as well. 01/13 - Continue sertraline at 50mg qAM - consider further titration - family meeting with yesterday, supportive but ongoing discussion and collaboration will be necessary 01/14 - Pt received additional 50mg of sertraline with lunch; increasing morning dose to 100mg tomorrow - Encouraged patient to complete safety plan in preparation for discharge - Solidify psychiatric aftercare (3) Anxiety: 01/12 - symptoms of JAYME and panic. Start SSRI as above, work on healthy coping skills, and refer to therapy. -Hydroxyzine as needed for sleep and anxiety. 01/13 - Reviewed available hydroxyzine for anxiety and sleep - Suggested prn hydroxyzine for sleep tonight, as slept only two hours last evening 01/14 - Titrating sertraline as above (4) Hypertension: 01/12 -hypertensive in the emergency room, with blood pressure of 167/108 upon arrival to the unit. Received one-time dose of clonidine. Patient reports he was told in the past he had hypertension and might need medication, but does not have a PCP and has not been monitored for this. Spoke with the hospitalist, Dr. Copeland, who recommended monitoring BP today (as normalized), and trial of lisinopril 10mg if he again has HTN. He will need to be referred to PCP for outpatient treatment. 01/13 - Pt started on lisinopril 10mg starting this morning - continue to monitor BP, titrate lisinopril as needed Post Discharge Appointments Primary Care Physician Name Of Family Doctor: Shelly [facility] Date of Appointment with PCP: 01/20/19 Time of Appointment with PCP: 1:30 p.m. Provider Appointment Comment: [address], [place] [id number] Primary Care Release of Information: Obtained, Reviewed and Signed Psychiatrist Name of Psychiatrist: Shelly - will call to schedule appt (will be seen in [facility]) Psychiatrist's Psychiatric Appointment Comment: [address], [place] [id number] Psychiatrist Release of Information: Obtained, Reviewed and Signed Smoking Cessation Counseling Tobacco Cessation Medication Prescribed at Discharge: Not Applicable/Non-Smoker Contact Information Discharge Discharge [address]: [address] [place] [address], [place] [address] Discharge Plan Discharge Items Patient Disposition: Home - Self-Care Reason For Visit: DEPRESSION NOS Discharge Diagnosis: Major depression Hypertension Discharge Goals: Decrease discomfort, Improve disease control, Learn about illness, Specific goals and Therapeutic intervention Specific Goals: Refer for outpatient treatment Activity: Per 'Additional Instructions' section Non-emergency contact: Primary Care Provider, Psychiatrist and Therapist Call non-emergency contact if: you have any medication questions and your symptoms worsen Follow-up/Referrals: PCP,NO [Primary Care Provider] - Diet: Regular Addtl Provider Instructions: SPECIAL CARE INSTRUCTIONS: 1. Follow through with your scheduled aftercare appointments. If unable to keep an appointment, please call to reschedule. 2. Take your medication only as prescribed. Medication should not be changed or stopped without the approval of your doctor. In the event of worsening symptoms or concerns about side effects, contact your doctor immediately. 3. Utilize new healthy coping skills, anger management skills, and stress management skills learned during your hospitalization. Journal feelings and process them with a support person. Identify stressors or situations that may result in relapse, deterioration or inappropriate behaviors and develop a plan to deal with those issues. 4. If your coping skills are ineffective and you are in crisis, contact your outpatient providers for direction. If unable to reach your providers, please call the CAN HELP LINE AT or go to the closest Emergency Room. 5. Avoid alcohol and un-prescribed drugs. 6. You have been provided with the Mental Health Advance Directives Pamphlet for your review. AFTERCARE APPOINTMENTS: * Please call your insurance company prior to your scheduled appointment to confirm your aftercare providers are covered. Take your insurance information to your appointments. WHO TO CALL AND WHEN: � Medical Emergencies:� For questions or emergencies related to your hospital stay, please contact the Inpatient Behavioral Health Unit at [phone]. � A cardio clinician is on-call 26/02 for the Behavioral Health Unit for emergencies � At any time you feel your situation is an emergency, you may also call 911 immediately. Your Doctors Instructions noted above were prepared by provider Nemo Jewell MD. Prescriptions: New sertraline 100 mg Tablet 100 mg PO QAM Qty: 30 RF: 0 lisinopril 10 mg Tablet 10 mg PO QAM Qty: 30 RF: 0 trazodone 50 mg tablet 50 mg PO HS PRN (Reason: insomnia) Qty: 60 RF: 0 Stand-Alone Forms: [facility] Discharge Orders: Discharge Order (Routine); Ordered 01/15/19 Ordered By: Nemo Jewell Admission Data Admit Date/Time: 01/11/19 14:28 Attending Provider: Nemo Jewell Admit Provider: Nemo Jewell Primary Care Provider: PCP,NO Other Providers: Nemo Jewell ; Cam Lopez Service: Psychiatry Other Interventions: PSY Interdisciplinary Discharge Planning Last Done: 01/14/19 11:12 Pending Studies at Discharge: Yes
== END 2019-01-15 11:05 | disposition home or self-care (01) | DRG 885 ==
LOC: ED 12:01 → 3S 14:28

== ENCOUNTER 2019-01-27 11:22 | Inpatient (IN) ==
[2019-01-27 11:58] LABS: Appearance Urine Clear (Clear); Bilirubin Urine Negative (Negative); Blood Urine Negative (Negative); Color Urine Yellow; Glucose Urine UA Negative (Negative); Ketones Urine Negative (Negative); Leukocyte Esterase Urine Negative (Negative); Nitrite Urine Negative (Negative); Protein Urine Negative (Negative); Specific Gravity Urine 1.021 (1.000-1.030); Urobilinogen Urine Negative (Negative); pH Urine 7.5 (4.5-7.5)
[2019-01-27 12:31] LABS: Amphetamines+Metham, Urine Neg (Neg); Barbiturates, Urine Neg (Neg); Benzodiazepine, Urine Neg (Neg); Cocaine, Urine Neg (Neg); MDMA (Ecstacy), Urine Pos (Neg); Methadone, Urine Neg (Neg); Opiate, Urine Neg (Neg); Phencyclidine, Urine Neg (Neg)
[2019-01-27 13:12] LABS: Basophils # (auto) 0.04 K/uL (0-0.2); Basophils % (auto) 0.5 %; Eosinophils # (auto) 0.02 K/uL (0-0.5); Eosinophils % (auto) 0.2 %; Hemoglobin 15.2 g/dL (14.0-18.0); Immature Granulocytes # (auto) 0.03 K/uL (0.00-0.02); Immature Granulocytes % (auto) 0.4 %; Lymphocytes # (auto) 1.96 K/uL (1.2-3.4); Lymphocytes % (auto) 24.2 %; Mean Corpuscular Hgb Conc 35.3 g/dL (32-36); Mean Corpuscular Volume 85.8 fL (80-100); Mean Platelet Volume 9.5 fL (7.4-10.4); Monocytes # (auto) 0.47 K/uL (0.11-0.59); Monocytes % (auto) 5.8 %; Neutrophils # (auto) 5.57 K/uL (1.4-6.5); Neutrophils % (auto) 68.9 %; Platelet Count 242 K/uL (130-400); RDW Coefficient of Variation 12.1 % (11.5-14.5); Red Blood Count 5.01 M/uL (4.7-6.1); White Blood Count 8.09 K/uL (4.8-10.8)
[2019-01-27 13:27] LABS: BUN Creatinine Ratio 15.2 (10-20); Est GFR (African American) 103.6; Est GFR (Non-African American) 89.4; Potassium 4.1 mmol/L (3.5-5.1)
[2019-01-27 13:34] LABS: Acetaminophen < 2 ug/ml (10-30); Salicylate < 1.7 mg/dl (2.8-20)
[2019-01-27 13:38] LABS: Bilirubin,Total 0.4 mg/dl (0.2-1)
--- NOTE | 2019-01-27 14:54 | Emergency Department Note ---
Entered by Cori Trevino acting as a scribe for Andrew Abbasi MD History of Present Illness General Chief complaint: Mental Health Evaluation Stated complaint: DEPRESSION Time Seen by Provider: 01/27/19 11:34 Source: patient Mode of arrival: ambulatory Limitations: no limitations History of Present Illness Onset (ago): day(s) (this morning) Location: head (psych) Pain Consistency: + other (worsening) Maximum Pain Intensity: 0 Quality: + other (depression, anxiety) Associated symptoms: + other (The patient complains of sleeping difficulties and suicidial ideation. The patient denies abdomianl pain, homicidal ideation, auditory and visual hallucinations, and loss of appetite.); no loss of appetite and no nausea/vomiting The patient is a 38 white male w/ PMHx anxiety, hypertension, depression and suicidal thoughts who presents to the ED w/ CC of a worsening mental health issue beginning this morning. The patient presents with his parents. The patient states that he was in the [facility] for depression and fleeting thoughts of suicide. He was discharged on 01/15. 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 He notes that he is very stressed and worried about the process. The patient complains of sleeping difficulties. He states that he is not currently feeling suicidal, but he told his this morning that if keeps going down the path he is now, it is not going to end well. The patient states that he had a plan several weeks ago but denies having a current plan. He denies access to guns, knives, and weapon. The patient denies homicidal ideation, auditory and visual hallucinations, nausea, vomiting, abdominal pain, and loss of appetite. He denies alcohol, tobacco, and drug use. The patient states that he has a great relationship with his . He notes that he feels like he needs impatient help. The patient reports that he cant keep putting the stress and strain on his and daughter. He states that he took his home medications this morning. Home Medications Home Medications Medication Instructions Recorded Confirmed Type lisinopril 10 mg PO QAM #30 tab 01/15/19 01/27/19 Rx sertraline 100 mg PO QAM #30 tab 01/15/19 01/27/19 Rx trazodone 50 mg PO HS PRN #60 tab 01/15/19 01/27/19 Rx Allergies Allergy/AdvReac Type Severity Reaction Status Date / Time cat dander Allergy Mild WATTERY Verified 01/27/19 18:13 EYES AND SNEEZING No Known Drug Allergies Allergy Unknown . Verified 04/27/16 06:39 Past Med/Surg History Medical History Anxiety Hypertension Depression (Acute) Suicidal thoughts (Acute) Surgical History No pertinent past surgical history Family History Other No pertinent family history Social History Preferred Language: Kinyarwanda Communication Ability: Effective Visual Impairment: No Limitations Hearing Ability: Normal Fueler Required: No Beliefs That Will Affect Care: None marital status: Current Living Situation: Family Current Living Situation Comment: , daughter Feels Safe at Home: Yes Smoking Status: Never smoker Review of Systems See HPI for pertinent positives & negatives. and A total of 10 systems reviewed and were otherwise negative Physical Exam Vital Signs Vital Signs - 24 hr 01/27/19 11:27 01/27/19 17:08 Temperature 36.8 C Temperature Source Oral Sepsis Recent Fever Within 48 Hours No Sepsis New/Unexplained Change in Mental Status No Sepsis Action Taken by Nursing No Action Required Pulse Rate 99 H Pulse Rate [Apical] 90 Respiratory Rate 17 18 Respiratory Effort / Characteristics Non-Labored Respiratory Depth Normal Respiratory Pattern Regular Blood Pressure 152/108 H Blood Pressure [Left Arm] 144/90 H Blood Pressure Mean 122 Blood Pressure Mean [Left Arm] 108 Blood Pressure Position Sitting Pulse Oximetry 98 98 Oxygen Delivery Method Room Air Room Air GENERAL: Wearing glasses, well appearing, well nourished, NAD, non-toxic. EYE EXAM: Normal conjunctiva. PERRL, no anisocoria and EOM's grossly intact w/o pain. OROPHARYNX: Moist mucus membranes. Grossly normal dentition. NECK: Supple, no nuchal rigidity, no adenopathy, non-tender. no signs of meningismus. LUNGS: Clear to auscultation. Normal chest wall mechanics. HEART: NSR, no MRG. ABDOMEN: Abdomen soft, non-tender, normo-active bowel sounds, no masses, no rebound or guarding. BACK: No CVA TTP. SKIN: No rashes and no bruising. UPPER EXTREMITIES: Upper extremities are grossly normal. LOWER EXTREMITIES: No pitting edema. No calf pain. NEURO EXAM: A&O x3, cranial nerves II-XII grossly intact, normal speech, moves all 4 extremities on command w/o issue. PSYCH: Depressed mood, no SI, no HI, no AVH. Course 1158: Past medical records reviewed. The patient was evaluated in room A05. A complete history and physical examination was performed. The patient was in the [facility] for depression and fleeting thoughts of suicide. He denied homicidal ideation. He was discharged on 01/15. 1454: The patient has been accepted upstairs. Administered Medications Lisinopril (Zestril) 10 mg PO [facility] Stop: 02/27/19 08:59 Last Admin: 01/28/19 08:08 Dose: 10 mg Documented by: [id number] Sertraline HCl (Zoloft) 100 mg PO [facility] Stop: 02/27/19 08:59 Last Admin: 01/28/19 08:08 Dose: 100 mg Documented by: [id number] Trazodone HCl (Desyrel) 50 mg PO HS PRN PRN Reason: insomnia Stop: 02/26/19 17:26 Last Admin: 01/27/19 22:28 Dose: 50 mg Documented by: [id number] Discontinued Medications Acetaminophen (Tylenol) Confirm Administered Dose 1,000 mg .ROUTE .STK-MED ONE Stop: 01/27/19 15:38 Last Admin: 01/27/19 15:42 Dose: Not Given Documented by: [id number] Acetaminophen (Tylenol) 1,000 mg PO NOW STA Stop: 01/27/19 15:42 Last Admin: 01/27/19 15:43 Dose: 1,000 mg Documented by: [id number] Medical Decision Making Differential Diagnosis Differential diagnoses Mood disorder, infection, hypoglycemia, electrolyte abnormalities, cardiac sources, intracerebral event, toxicologic, neurologic, as well as others etiologies were considered. Medical Records Attestation: I reviewed the patient's medical records. Home Medications Current Medication List: was personally reviewed by me Laboratory Data Attestation: I reviewed the patient's lab results. Result diagrams: 01/27/19 12:50 01/27/19 12:50 Lab Results 01/27/19 01/27/19 01/27/19 Range/Units 11:43 11:43 12:50 WBC 8.09 (4.8-10.8) K/uL RBC 5.01 (4.7-6.1) M/uL Hgb 15.2 (14.0-18.0) g/dL Hct 43.0 (42-52) % MCV 85.8 (80-100) fL MCH 30.3 (25-34) pg MCHC 35.3 (32-36) g/dL RDW Std Deviation 38.0 (36.4-46.3) fL RDW Coeff of Mary 12.1 (11.5-14.5) % Plt Count 242 (130-400) K/uL MPV 9.5 (7.4-10.4) fL Immature Gran % (Auto) 0.4 % Neut % (Auto) 68.9 % Lymph % (Auto) 24.2 % [place] % (Auto) 5.8 % Eos % (Auto) 0.2 % Baso % (Auto) 0.5 % Immature Gran # (Auto) 0.03 H (0.00-0.02) K/uL Neut # (Auto) 5.57 (1.4-6.5) K/uL Lymph # (Auto) 1.96 (1.2-3.4) K/uL [place]comb # (Auto) 0.47 (0.11-0.59) K/uL Eos # (Auto) 0.02 (0-0.5) K/uL Baso # (Auto) 0.04 (0-0.2) K/uL Sodium (136-145) mmol/L Potassium (3.5-5.1) mmol/L Chloride (98-107) mmol/L Carbon Dioxide (21-32) mmol/L Anion Gap (3-11) BUN (7-18) mg/dl Creatinine (0.6-1.4) mg/dl Est Cr Clr Drug Dosing ml/min Est GFR ( Amer) Est GFR (Non-Af Amer) BUN/Creatinine Ratio (10-20) Glucose (70-99) mg/dl Calcium (8.5-10.1) mg/dl Total Bilirubin (0.2-1) mg/dl AST (15-37) U/L ALT (12-78) U/L Alkaline Phosphatase (45-117) U/L Total Protein (6.4-8.2) gm/dl Albumin (3.4-5.0) gm/dl Globulin (2.5-4.0) gm/dl Albumin/Globulin Ratio (0.9-2) TSH (0.300-4.500) uIu/ml Urine Color Yellow Urine Appearance Clear (Clear) Urine pH 7.5 (4.5-7.5) Ur Specific [place] 1.021 (1.000-1.030) Urine Protein Negative (Negative) Urine Glucose (UA) Negative (Negative) Urine Ketones Negative (Negative) Urine Blood Negative (Negative) Urine Nitrite Negative (Negative) Urine Bilirubin Negative (Negative) Urine Urobilinogen Negative (Negative) Ur Leukocyte Esterase Negative (Negative) Salicylates (2.8-20) mg/dl Urine Opiates Screen Neg (Neg) Ur Methadone, Qual Neg (Neg) Acetaminophen (10-30) ug/ml Urine Barbiturates Neg (Neg) Ur Phencyclidine (PCP) Neg (Neg) U Amphetamin/Meth Scrn Neg (Neg) MDMA (Ecstasy) Screen Pos H (Neg) U Benzodiazepines Scrn Neg (Neg) Ur Cocaine Metabolite Neg (Neg) U Marijuana (THC) Screen Neg (Neg) Ethyl Alcohol mg/dL (0-3) mg/dl 01/27/19 01/27/19 01/27/19 Range/Units 12:50 12:50 12:50 WBC (4.8-10.8) K/uL RBC (4.7-6.1) M/uL Hgb (14.0-18.0) g/dL Hct (42-52) % MCV (80-100) fL MCH (25-34) pg MCHC (32-36) g/dL RDW Std Deviation (36.4-46.3) fL RDW Coeff of Mary (11.5-14.5) % Plt Count (130-400) K/uL MPV (7.4-10.4) fL Immature Gran % (Auto) % Neut % (Auto) % Lymph % (Auto) % [place] % (Auto) % Eos % (Auto) % Baso % (Auto) % Immature Gran # (Auto) (0.00-0.02) K/uL Neut # (Auto) (1.4-6.5) K/uL Lymph # (Auto) (1.2-3.4) K/uL [place] # (Auto) (0.11-0.59) K/uL Eos # (Auto) (0-0.5) K/uL Baso # (Auto) (0-0.2) K/uL Sodium 138 (136-145) mmol/L Potassium 4.1 (3.5-5.1) mmol/L Chloride 106 (98-107) mmol/L Carbon Dioxide 24 (21-32) mmol/L Anion Gap 7.0 (3-11) BUN 16 (7-18) mg/dl Creatinine 1.04 (0.6-1.4) mg/dl Est Cr Clr Drug Dosing 105.0 ml/min Est GFR ( Amer) 103.6 Est GFR (Non-Af Amer) 89.4 BUN/Creatinine Ratio 15.2 (10-20) Glucose 103 H (70-99) mg/dl Calcium 10.0 (8.5-10.1) mg/dl Total Bilirubin 0.4 (0.2-1) mg/dl AST 16 (15-37) U/L ALT 48 (12-78) U/L Alkaline Phosphatase 55 (45-117) U/L Total Protein 8.0 (6.4-8.2) gm/dl Albumin 4.0 (3.4-5.0) gm/dl Globulin 4.0 (2.5-4.0) gm/dl Albumin/Globulin Ratio 1.0 (0.9-2) TSH 1.080 (0.300-4.500) uIu/ml Urine Color Urine Appearance (Clear) Urine pH (4.5-7.5) Ur Specific [place] (1.000-1.030) Urine Protein (Negative) Urine Glucose (UA) (Negative) Urine Ketones (Negative) Urine Blood (Negative) Urine Nitrite (Negative) Urine Bilirubin (Negative) Urine Urobilinogen (Negative) Ur Leukocyte Esterase (Negative) Salicylates < 1.7 L (2.8-20) mg/dl Urine Opiates Screen (Neg) Ur Methadone, Qual (Neg) Acetaminophen < 2 L (10-30) ug/ml Urine Barbiturates (Neg) Ur Phencyclidine (PCP) (Neg) U Amphetamin/Meth Scrn (Neg) MDMA (Ecstasy) Screen (Neg) U Benzodiazepines Scrn (Neg) Ur Cocaine Metabolite (Neg) U Marijuana (THC) Screen (Neg) Ethyl Alcohol mg/dL < 3.0 (0-3) mg/dl Blood Pressure Blood Pressure Findings: Elevated blood pressure Blood Pressure Disposition: elevated BP felt to be situational MDM Narrative Patient was seen and evaluated the bedside. The patient was having some increasing depressed thoughts and feeling suicidal ideation but without plan. Patient denies any HI or AVH. Patient did have blood work completed and it was deemed medically clear. After being seen by psych caseworker protective services was concerned for increasing suicidal ideation. The patient was accepted 3 S. and subsequently admitted to the inpatient psychiatric service. Impression & Plan Depression, Suicidal ideation Discharge Plan Visit Data *Final* Discharge Date/Time: 01/27/19 17:58 Chief Complaint: Mental Health Evaluation Stated Complaint: DEPRESSION ED Provider: Andrew Abbasi Discharge Problem: Depression, Suicidal ideation Patient Disposition: Admitted As Inpatient Discharge Instructions Interventions: ED Discharge Assessment Last Done: 01/27/19 17:58 Discharge Problem: Depression Qualifiers: Depression Type: unspecified Qualified Code(s): F32.9 - Major depressive disorder, single episode, unspecified The scribe's documentation has been prepared under my direction and personally reviewed by me in its entirety. I confirm that the note above accurately reflects all work, treatment, procedures, and medical decision making performed by me.
[2019-01-27] MEDS ORDERED: ACETAMINOPHEN 500 MG TAB ONE (15:37)
[2019-01-27] MEDS ORDERED: ACETAMINOPHEN 500 MG TAB PO STA (15:41)
[2019-01-27] MEDS ORDERED: ACETAMINOPHEN 325 MG TAB PO PRN (17:24)
[2019-01-27] MEDS ORDERED: MAGNESIUM HYDROXIDE SUSP 30 ML UDC PO PRN (17:24)
[2019-01-27] MEDS ORDERED: ALUMINUM/MAGNESIUM SUSP 30 ML UDC PO PRN (17:24)
[2019-01-27] MEDS ORDERED: SODIUM CHLORIDE 0.65% NA SOLN 45 ML (OCEAN) PRN (17:24)
[2019-01-27] MEDS ORDERED: BISMUTH SUBSALICYLATE PER ML OMNICELL CHARGE PO PRN (17:24)
[2019-01-27] MEDS ORDERED: TRAZODONE HCL 50 MG TAB PO PRN (17:27)
[2019-01-28] MEDS: LISINOPRIL 10 MG TAB PO SCH (08:08)
[2019-01-28] MEDS ORDERED: SERTRALINE HCL 100 MG TABLET PO SCH (09:00)
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
[2019-01-29] MEDS: SERTRALINE HCL 50 MG TABLET PO SCH (08:01)
[2019-01-29] MEDS: LISINOPRIL 10 MG TAB PO SCH (08:01)
--- NOTE | 2019-01-29 08:24 | Psychiatric Progress Note ---
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 His solution is that he will have nothing to do with closing his business, and says his will be handling it and will "shield" him from it, meaning no one can even talk to him about it. Medications are being adjusted to target sleep, mood and anxiety. He will need another meeting with his , and possibly his family. Outpatient treatment is suboptimal due to insurance barriers, as he has had only 1 appointment with a therapist and is not able to see her again for 1.5 months. He would benefit from more frequent therapy given the severity of current stressors and symptoms. He remains at risk of suicide if he is discharged prematurely. (1) Suicidal thoughts: 01/28 - Admitted to a locked inpatient behavioral health unit, on q15 minute safety checks - Encourage medication initiation/adjustments as indicated - Encourage participation in group and recreational therapies - Gather collateral information from outpatient providers - Suggest family meeting to involve outpatient supports in safety planning - Arrange appropriate aftercare 01/29 - confirmed with staff that guns are secured and patient does not have access to them. (2) Anxiety: 01/28 - Titrate sertraline to 150mg daily to target worsening depression and anxiety - Hydroxyzine available as needed for anxiety; will have 150mg of hydroxyzine available for sleep this evening - Encouraged development of healthy and effective coping strategies - Process stressors as needed 1:1 with counselors - Recommend family meeting with outpatient supports to discuss any additional needs 01/29 - SW to contact his therapist to determine if he can be seen more frequently, and if not, will explore other options - He states he and his talked about it, and are willing to pay out of pocket if needed. - Confirm psychiatric appointment at [facility] and send records to coordinate care. - Schedule family meeting with . - Continue sertraline 150mg for now, monitor increased nervousness (reports shakiness and heart racing), consider increase to 200mg daily tomorrow. - Patient would like to try a higher dose of trazodone for sleep, and states he does not think he will need the as needed trazodone during the day for anxiety here, so less risk of serotonin syndrome. Will discontinue hydroxyzine and order trazodone 150 mg at bedtime, with an additional 50 mg dose as needed. (3) Depression: 01/28 - Titrate sertraline as above (4) Hypertension: 01/28 - Continue home dose of lisinopril 10mg; consider need for further titration after observing readings. Inventory Assets Strengths: Willingness for treatment, support from , Needs: Increased frequency of therapy visits, development of healthy and effective coping strategies to manage anxiety Risk Factors Assessment Male: Yes : Yes Do You Have Access To A Gun?: No (secured during last admission) Health Problems: Yes (Hypertension) Mental Health Diagnoses: Yes Substance Use Disorders: No Previous Attempt: No Family History of Suicide: Yes Previous Psychiatric Hospitalization: Yes Hopelessness: Yes Smoker: No Protective Factors Assessment Anglican Beliefs: No : Yes Responsible for Young Children: Yes Employed: No Stable Relationships: Yes Supportive Family: Yes Interval History Chief Complaint "The Vistaril helped with sleep, but today I feel nervous, shaky". Review of Systems Sleep Information Total Hours of Sleep: 7.25 Sleep Comments: pt given vistaril per rn. pt on q-15 minute checks Meal Information Percent Meal Consumed - Breakfast: 100 Percent Meal Consumed - Lunch: 100 Percent Meal Consumed - Dinner: 100 Subjective Subjective Patient was seen & assessed and interval progress reviewed with Treatment Team. Staff report he has been out of his room and going to groups, got hydroxyzine 150mg HS and slept 7.25 hours. On my assessment, he reports mood has improved since admission, although still feels overwhelmed by his stressors at home. He reports better sleep with the hydroxyzine, but since waking up has felt "nervous, shaky, not anxious though." He has not gotten trazodone since admission. He denies SI, stating he gets them "only in the bleakest hours." He attributes his decompensation after discharge and return of suicidality to "trying to take on too much with the business," meaning he was "taking on too much responsibility, too much talking about it to my ." He says he was giving his instructions about how to close the business, and doesn't want to do this as he is "fine as long as I don't have to think about the business." He says his is going to "take care of it all, I can't know anything. I told them to shield from all of it." He is not sure where they are in the process and thinks it could take over a month for the business to be closed completely. 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 He thinks his went to her parents to ask them to help her, but doesn't "know the results of that, don't need to know." He thinks he is tolerating his medications well. He doesn't think he needs a family meeting with his , but is willing to do so. Discussed trazodone vs hydroxyzine for sleep - he'd like to try a higher dose of trazodone for sleep instead of hydroxyzine, as that's what he plans to take at home. He does not think he will need trazodone during the day here (as anxiety overall lower when away from stressors), and would like to return to that when he gets home. Physical Exam Psychiatric Orientation: alert, oriented x 3 and cooperative Apperance: appropriately dressed, appropriately groomed and appeared stated age Eye Contact: + fair eye contact Motor Behavior: steady gait and station and no abnormal motor movements Speech: normal rate/rhythm/volume of speech Affect: + depressed affect and + anxious affect Mood: + depressed mood and + anxious mood but improved from admission Thought Process: goal directed thought process Thought Content: + cognitive distortions Suicidal Thoughts: denies suicidal thoughts Homicidal Thoughts: denies homicidal thoughts Hallucinations: no auditory hallucinations and no visual hallucinations Cognition: recent memory grossly intact, attention grossly intact and language grossly intact Insight: + fair insight Judgement: + fair judgement Vital Signs (Past 24 Hours) Last Vital Signs Temp 36.6 C 01/29/19 06:55 Pulse 92 H 01/29/19 06:56 Resp 18 01/29/19 06:55 BP 124/88 01/29/19 06:56 Pulse Ox 97 01/27/19 18:08 Results & Data Current Inpatient Medications Current Inpatient Medications: Current Inpatient Medications Acetaminophen (Tylenol) 650 mg PO Q4H PRN PRN Reason: Headache or Minor Fever Stop: 02/26/19 17:23 Al Hydrox/Mg Hydrox/Simethicone (Maalox) 30 ml PO Q4H PRN PRN Reason: GI Upset Stop: 02/26/19 17:23 Bismuth Subsalicylate (Kaopectate) 15 ml PO PRN PRN PRN Reason: Loose Stool Stop: 02/26/19 17:23 Hydroxyzine HCl (Vistaril) 25 mg PO Q4H PRN PRN Reason: Anxiety Stop: 02/26/19 17:23 Hydroxyzine HCl (Vistaril) 150 mg PO HSZ PRN PRN Reason: Insomnia Stop: 02/26/19 17:23 Last Admin: 01/28/19 21:53 Dose: 150 mg Documented by: Lisinopril (Zestril) 10 mg PO QAM DERECK Stop: 02/27/19 08:59 Last Admin: 01/29/19 08:01 Dose: 10 mg Documented by: Magnesium Hydroxide (Milk Of Magnesia) 30 ml PO DAILY PRN PRN Reason: Heartburn Stop: 02/26/19 17:23 Sertraline HCl (Zoloft) 150 mg PO QAM DERECK Stop: 02/28/19 08:59 Last Admin: 01/29/19 08:01 Dose: 150 mg Documented by: Sodium Chloride ([place] Nasal) 1 - 2 sprays NA PRN PRN PRN Reason: Nasal Dryness/Congestion Stop: 02/26/19 17:23 Trazodone HCl (Desyrel) 50 mg PO HS PRN PRN Reason: insomnia Stop: 02/26/19 17:26 Last Admin: 01/27/19 22:28 Dose: 50 mg Documented by: Post Discharge Appointments Primary Care Physician Name Of Family Doctor: Roni David Therapist Name of Therapist: Dr Madrigal Date of Therapist Appointment: 03/06/19 Mail Clerks Supervisor Name of Mail Clerks Supervisor: . Contact Information Discharge Discharge Address: [address] [place] [address] Robbie Jaquez,MELANI [id number] CPT Code CPT Code 61640 (1) Depression Depression Type: unspecified Qualified Code(s): F32.9 - Major depressive disorder, single episode, unspecified
[2019-01-29] MEDS: TRAZODONE HCL 100 MG TAB PO SCH (21:40)
[2019-01-30] MEDS: LISINOPRIL 10 MG TAB PO SCH (08:04)
[2019-01-30] MEDS: SERTRALINE HCL 50 MG TABLET PO SCH (08:05)
--- NOTE | 2019-01-30 09:44 | Psychiatric Progress Note ---
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 Family meeting with held yesterday, where patient reiterated his plan to have nothing to do with his business closing, we discussed that total avoidance is also not a productive way to manage stress. Discussed recommendation to further titrate sertraline to 150mg, patient requesting to delay by a day due to feeling "jittery" yesterday. Trazodone 150mg effective for restful sleep last evening, and will continue. Outpatient treatment is suboptimal due to insurance barriers, as he has had only 1 appointment with a therapist and is not able to see her again for 1.5 months. Pt does admit willingness to drive further distance or to pay out of pocket if necessary. Given the short timeline of his re-admission, would highly recommend concrete aftercare plan prior to discharge, as patient decompensated rather quickly on an outpatient basis. He remains at risk of suicide if he is discharged prematurely. (1) Suicidal thoughts: 01/28 - Admitted to a locked inpatient behavioral health unit, on q15 minute safety checks - Encourage medication initiation/adjustments as indicated - Encourage participation in group and recreational therapies - Gather collateral information from outpatient providers - Suggest family meeting to involve outpatient supports in safety planning - Arrange appropriate aftercare 01/29 - confirmed with staff that guns are secured and patient does not have access to them. (2) Anxiety: 01/28 - Titrate sertraline to 150mg daily to target worsening depression and anxiety - Hydroxyzine available as needed for anxiety; will have 150mg of hydroxyzine available for sleep this evening - Encouraged development of healthy and effective coping strategies - Process stressors as needed 1:1 with counselors - Recommend family meeting with outpatient supports to discuss any additional needs 01/29 - SW to contact his therapist to determine if he can be seen more frequently, and if not, will explore other options - He states he and his talked about it, and are willing to pay out of pocket if needed. - Confirm psychiatric appointment at [facility] and send records to coordinate care. - Schedule family meeting with . - Continue sertraline 150mg for now, monitor increased nervousness (reports shakiness and heart racing), consider increase to 200mg daily tomorrow. - Patient would like to try a higher dose of trazodone for sleep, and states he does not think he will need the as needed trazodone during the day for anxiety here, so less risk of serotonin syndrome. Will discontinue hydroxyzine and order trazodone 150 mg at bedtime, with an additional 50 mg dose as needed. 01/30 - Hold titration of sertraline to 200mg until tomorrow, at patient's request - Family meeting with yesterday - supportive, guns secured - Continue trazodone 150mg qHS, as felt to be effective for sleep - Encourage development of healthy coping strategies, assist with processing stressors rather than avoidance (3) Depression: 01/28 - Titrate sertraline as above 01/30 - As above, has not needed prns as feels he is removed from stressors (4) Hypertension: 01/28 - Continue home dose of lisinopril 10mg; consider need for further titration after observing readings. Inventory Assets Strengths: Willingness for treatment, support from , Needs: Increased frequency of therapy visits, development of healthy and effective coping strategies to manage anxiety Risk Factors Assessment Male: Yes : Yes Do You Have Access To A Gun?: No (secured during last admission) Health Problems: Yes (Hypertension) Mental Health Diagnoses: Yes Substance Use Disorders: No Previous Attempt: No Family History of Suicide: Yes Previous Psychiatric Hospitalization: Yes Hopelessness: Yes Smoker: No Protective Factors Assessment Yarsani Beliefs: No : Yes Responsible for Young Children: Yes Employed: No Stable Relationships: Yes Supportive Family: Yes Interval History Identifying Information SNEHA LOVELACE is a 38-year-old M who currently lives in [place] with his and daughter. Pt has a history of depression and anxiety, and was admitted on 01/27/19 17:25 on a 201 voluntary commitment for worsening symptoms in combination with suicidal ideation. Chief Complaint "Oh, I'm fine. I'm ok while I'm here." Review of Systems Notes Constitutional: denies feeling "jittery" today Cardiovascular: denies previously experienced tachycardia Respiratory: denied Gastrointestinal: denied Neurological: denied Psychiatric: denies symptoms other than stated above Total of at least 10 systems reviewed, pertinent positives as above and in HPI. Sleep Information Total Hours of Sleep: 7 Sleep Comments: pt on q-15 minute checks Meal Information Percent Meal Consumed - Breakfast: 100 Percent Meal Consumed - Lunch: 75 Percent Meal Consumed - Dinner: 75 Subjective Subjective Patient was seen & assessed and interval progress reviewed with Nursing. Staff reports the patient participated in a family meeting with his yesterday. He again verbalized his plan to have nothing to do with the closing of his business, and to avoid stressors after returning home. Pt's remains supportive, though was reported to appear overwhelmed. Pt was seen today to assess progress since admission. Pt states he is "fine." He has been participating in groups and feels he is benefiting from his admission. Pt states the meeting with his went as expected, and he was able to relay his plan that he would avoid anything to do with the closing of his business. He states, "If you know the stressors trigger the anxiety, then avoiding the stressors allows you to avoid the anxiety. It just makes sense." This provider attempted to process with the patient that total avoidance is not often the best solution and cannot always be managed. This provider instead recommended that patient continue to work on effective coping strategies - which would allow him to gradually take on more work as his coping techniques improved. Pt agreed, but did not appear to be invested in straying from his original mindset. Pt states he is no longer feeling "jittery", but is concerned about titrating his sertraline too quickly. He is agreeable to discussing it again tomorrow, and will increase if feels physically well throughout the day today. Pt denies SI, he does not have other needs or concerns. Physical Exam Psychiatric Orientation: alert, oriented x 3 and cooperative Apperance: appropriately dressed (casually, t-shirt and sweat pants) short, greasy hair. malodorous Eye Contact: good eye contact Motor Behavior: steady gait and station and no abnormal motor movements Speech: normal rate/rhythm/volume of speech Affect: + depressed affect (though improving somewhat) "I'm fine while I'm here, not nervous at all. It's what happens after I leave that I need to avoid." Thought Process: goal directed thought process Thought Content: reality based without delusions Suicidal Thoughts: denies suicidal thoughts Homicidal Thoughts: denies homicidal thoughts Hallucinations: no auditory hallucinations and no visual hallucinations Cognition: remote memory grossly intact Estimated Intelligence: consistent with education level Insight: + fair insight Judgement: + fair judgement Vital Signs (Past 24 Hours) Last Vital Signs Temp 36.3 C L 01/30/19 06:44 Pulse 83 01/30/19 06:44 Resp 18 01/30/19 06:44 BP 131/82 01/30/19 06:44 Pulse Ox 97 01/27/19 18:08 Results & Data Current Inpatient Medications Current Inpatient Medications: Current Inpatient Medications Acetaminophen (Tylenol) 650 mg PO Q4H PRN PRN Reason: Headache or Minor Fever Stop: 02/26/19 17:23 Al Hydrox/Mg Hydrox/Simethicone (Maalox) 30 ml PO Q4H PRN PRN Reason: GI Upset Stop: 02/26/19 17:23 Bismuth Subsalicylate (Kaopectate) 15 ml PO PRN PRN PRN Reason: Loose Stool Stop: 02/26/19 17:23 Hydroxyzine HCl (Vistaril) 25 mg PO Q4H PRN PRN Reason: Anxiety Stop: 02/26/19 17:23 Lisinopril (Zestril) 10 mg PO QAM [facility] Stop: 02/27/19 08:59 Last Admin: 01/30/19 08:04 Dose: 10 mg Documented by: Magnesium Hydroxide (Milk Of Magnesia) 30 ml PO DAILY PRN PRN Reason: Heartburn Stop: 02/26/19 17:23 Sertraline HCl (Zoloft) 150 mg PO QAM DERECK Stop: 02/28/19 08:59 Last Admin: 01/30/19 08:05 Dose: 150 mg Documented by: Sodium Chloride ([place] Nasal) 1 - 2 sprays NA PRN PRN PRN Reason: Nasal Dryness/Congestion Stop: 02/26/19 17:23 Trazodone HCl (Desyrel) 50 mg PO HS PRN PRN Reason: insomnia Stop: 02/26/19 17:26 Last Admin: 01/27/19 22:28 Dose: 50 mg Documented by: Trazodone HCl (Desyrel) 150 mg PO HS DERECK Stop: 02/28/19 21:59 Last Admin: 01/29/19 21:40 Dose: 150 mg Documented by: Post Discharge Appointments Primary Care Physician Name Of Family Doctor: Shelly David DO Primary Care Time of Appointment with PCP: Follow up as needed. Provider Appointment Comment: [place] [id number] Psychiatrist Name of Psychiatrist: Shelly Gtz Psychiatrist's Date of Appointment with Psychiatrist: 02/13/19 Psychiatric Appointment Comment: [place] [id number] Therapist Name of Therapist: Shelly Madrigal Therapist's Date of Therapist Appointment: 02/24/19 Time of Therapist Appointment: 9am Therapy Appointment Comment: [place] [id number] Urinalysis Technician Name of Urinalysis Technician: . Contact Information Discharge Discharge Address: [address] [place] [address] [place] [id number] CPT Code CPT Code 12348 (1) Depression Depression Type: unspecified Qualified Code(s): F32.9 - Major depressive disorder, single episode, unspecified
[2019-01-30] MEDS: TRAZODONE HCL 100 MG TAB PO SCH (21:08)
[2019-01-31] MEDS: LISINOPRIL 10 MG TAB PO SCH (07:59)
[2019-01-31] MEDS: SERTRALINE HCL 50 MG TABLET PO SCH (07:59)
--- NOTE | 2019-01-31 10:04 | Psychiatric Progress Note ---
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 Family meeting with held yesterday, where patient reiterated his plan to have nothing to do with his business closing. Pt continues to be encouraged to address his stressors in this environment, as avoidance is not likely sustainable. Pt agreeable to further titration of sertraline, but is concerned about return o f tachycardia/"jittery feelings." Given the short timeline of his re-admission and limited willingness to address outpatient stressors, would highly recommend concrete aftercare plan prior to discharge, as patient decompensated rather quickly on an outpatient basis. He remains at risk of suicide if he is discharged prematurely. (1) Suicidal thoughts: 01/28 - Admitted to a locked inpatient behavioral health unit, on q15 minute safety checks - Encourage medication initiation/adjustments as indicated - Encourage participation in group and recreational therapies - Gather collateral information from outpatient providers - Suggest family meeting to involve outpatient supports in safety planning - Arrange appropriate aftercare 01/29 - confirmed with staff that guns are secured and patient does not have access to them. (2) Anxiety: 01/28 - Titrate sertraline to 150mg daily to target worsening depression and anxiety - Hydroxyzine available as needed for anxiety; will have 150mg of hydroxyzine available for sleep this evening - Encouraged development of healthy and effective coping strategies - Process stressors as needed 1:1 with counselors - Recommend family meeting with outpatient supports to discuss any additional needs 01/29 - SW to contact his therapist to determine if he can be seen more frequently, and if not, will explore other options - He states he and his talked about it, and are willing to pay out of pocket if needed. - Confirm psychiatric appointment at [facility] and send records to coordinate care. - Schedule family meeting with . - Continue sertraline 150mg for now, monitor increased nervousness (reports shakiness and heart racing), consider increase to 200mg daily tomorrow. - Patient would like to try a higher dose of trazodone for sleep, and states he does not think he will need the as needed trazodone during the day for anxiety here, so less risk of serotonin syndrome. Will discontinue hydroxyzine and order trazodone 150 mg at bedtime, with an additional 50 mg dose as needed. 01/30 - Hold titration of sertraline to 200mg until tomorrow, at patient's request - Family meeting with yesterday - supportive, guns secured - Continue trazodone 150mg qHS, as felt to be effective for sleep - Encourage development of healthy coping strategies, assist with processing stressors rather than avoidance 01/31 - Pt to receive additional 50mg dose of sertraline this afternoon, will increase to 200mg daily tomorrow morning - Continue trazodone 150mg for sleep - Continue to encourage patient in addressing stressors rather than avoidance (3) Depression: 01/28 - Titrate sertraline as above 01/30 - As above, has not needed prns as feels he is removed from stressors (4) Hypertension: 01/28 - Continue home dose of lisinopril 10mg; consider need for further titration after observing readings. Inventory Assets Strengths: Willingness for treatment, support from , Needs: Increased frequency of therapy visits, development of healthy and effective coping strategies to manage anxiety Risk Factors Assessment Male: Yes : Yes Do You Have Access To A Gun?: No (secured during last admission) Health Problems: Yes (Hypertension) Mental Health Diagnoses: Yes Substance Use Disorders: No Previous Attempt: No Family History of Suicide: Yes Previous Psychiatric Hospitalization: Yes Hopelessness: Yes Smoker: No Protective Factors Assessment Sikhism Beliefs: No : Yes Responsible for Young Children: Yes Employed: No Stable Relationships: Yes Supportive Family: Yes Interval History Identifying Information SNEHA LOVELACE is a 38-year-old M who currently lives in [place] with his and daughter. Pt has a history of depression and anxiety, and was admitted on 01/27/19 17:25 on a 201 voluntary commitment for worsening symptoms in combination with suicidal ideation. Chief Complaint "Things are ok, I don't have any issues here." Review of Systems Notes Constitutional: denied Cardiovascular: reports "heart pounding" Respiratory: denied Gastrointestinal: denied Neurological: denied Psychiatric: denies symptoms other than stated above Total of at least 10 systems reviewed, pertinent positives as above and in HPI. Sleep Information Total Hours of Sleep: 7.25 Sleep Comments: sneha snores loudly when laying on his back but is quiet when side laying Meal Information Percent Meal Consumed - Breakfast: 100 Percent Meal Consumed - Lunch: 100 Percent Meal Consumed - Dinner: 100 Subjective Subjective Patient was seen & assessed and interval progress reviewed with Treatment Team. Staff reports the patient has been supportive of peers in groups. He continues to believe that avoiding triggers after discharge will allow him to maintain mood and have continued resolution of SI. Pt was seen today to assess progress since admission. Pt feels his mood has improved, but continues to avoid stressors and is not receptive to recommendation that he address some of these concern while in a safe environment. Pt is willing to further titrate his dose of sertraline to allow him to cope with stressors, but is concerned about return of his "jitteriness." Pt feels most comfortable with considering a discharge tomorrow, as he is concerned about potential side effects and will have more support from his over a weekend. He denies SI, but remains resistant to confronting the stressors that led to the thoughts. Pt denies other needs or concern today. Physical Exam Psychiatric Orientation: alert, oriented x 3 and cooperative Apperance: appropriately dressed (casually dressed) and appropriately groomed Eye Contact: good eye contact Motor Behavior: steady gait and station and no abnormal motor movements Speech: normal rate/rhythm/volume of speech Affect: euthymic affect Mood: no depressed mood and no anxious mood "I feel fine while I'm here." Thought Process: goal directed thought process and clear/coherent thought process Thought Content: reality based without delusions Suicidal Thoughts: denies suicidal thoughts Homicidal Thoughts: denies homicidal thoughts Hallucinations: no auditory hallucinations and no visual hallucinations Cognition: remote memory grossly intact, attention grossly intact and language grossly intact Estimated Intelligence: consistent with education level Insight: + fair insight (poor insight as it relates to avoiding stressors) Judgement: + fair judgement Vital Signs (Past 24 Hours) Last Vital Signs Temp 36.4 C L 01/31/19 06:48 Pulse 80 01/31/19 06:48 Resp 18 01/31/19 06:48 BP 131/91 01/31/19 06:48 Pulse Ox 97 01/27/19 18:08 Results & Data Laboratory Results Laboratory Results - last 24 hr 01/27/19 11:43 U MDMA (Ecstasy), Quant REPORT Current Inpatient Medications Current Inpatient Medications: Current Inpatient Medications Acetaminophen (Tylenol) 650 mg PO Q4H PRN PRN Reason: Headache or Minor Fever Stop: 02/26/19 17:23 Al Hydrox/Mg Hydrox/Simethicone (Maalox) 30 ml PO Q4H PRN PRN Reason: GI Upset Stop: 02/26/19 17:23 Bismuth Subsalicylate (Kaopectate) 15 ml PO PRN PRN PRN Reason: Loose Stool Stop: 02/26/19 17:23 Hydroxyzine HCl (Vistaril) 25 mg PO Q4H PRN PRN Reason: Anxiety Stop: 02/26/19 17:23 Lisinopril (Zestril) 10 mg PO QAM DERECK Stop: 02/27/19 08:59 Last Admin: 01/31/19 07:59 Dose: 10 mg Documented by: Magnesium Hydroxide (Milk Of Magnesia) 30 ml PO DAILY PRN PRN Reason: Heartburn Stop: 02/26/19 17:23 Sertraline HCl (Zoloft) 200 mg PO QAM DERECK Stop: 03/03/19 08:59 Sodium Chloride ([place] Nasal) 1 - 2 sprays NA PRN PRN PRN Reason: Nasal Dryness/Congestion Stop: 02/26/19 17:23 Trazodone HCl (Desyrel) 50 mg PO HS PRN PRN Reason: insomnia Stop: 02/26/19 17:26 Last Admin: 01/27/19 22:28 Dose: 50 mg Documented by: Trazodone HCl (Desyrel) 150 mg PO HS DERECK Stop: 02/28/19 21:59 Last Admin: 01/30/19 21:08 Dose: 150 mg Documented by: Post Discharge Appointments Primary Care Physician Name Of Family Doctor: Shelly David DO Primary Care Time of Appointment with PCP: Follow up as needed. Provider Appointment Comment: [address] [place] [address] Psychiatrist Name of Psychiatrist: Shelly Gtz Psychiatrist's Date of Appointment with Psychiatrist: 02/13/19 Psychiatric Appointment Comment: [address] [place] [address] Therapist Name of Therapist: Shelly Madrigal Therapist's Date of Therapist Appointment: 02/24/19 Time of Therapist Appointment: 9am Therapy Appointment Comment: [address], [place] [address] Straightedge Man Name of Straightedge Man: . Contact Information Discharge Discharge Address: [address] [place], [place] [address]e [facility] [place] [address] CPT Code CPT Code 01542 (1) Depression Depression Type: unspecified Qualified Code(s): F32.9 - Major depressive disorder, single episode, unspecified
[2019-01-31] MEDS ORDERED: SERTRALINE HCL 50 MG TABLET PO ONE (13:00)
[2019-01-31] MEDS ORDERED: TRAZODONE HCL 50 MG TAB PO ONE (14:30)
[2019-01-31] MEDS: TRAZODONE HCL 100 MG TAB PO SCH (21:37)
[2019-02-01] MEDS: LISINOPRIL 10 MG TAB PO SCH (08:06)
[2019-02-01] MEDS: SERTRALINE HCL 100 MG TABLET PO SCH (08:06)
--- NOTE | 2019-02-01 08:49 | Psychiatric Progress Note ---
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 Patient participated in an unexpected meeting with his yesterday afternoon, and was informed of her difficulty obtaining alone, that he is being sued, and that she is not able to handle this closing as well as they had planned. Patient is having difficulty appreciating the additional stress that has been placed on his , especially she is likely not as familiar with these tasks as the patient might be. This provider attempted to process with the patient that it may actually be more beneficial in the long run for him to be involved in these decisions, as his lack of involvement thus far has likely contributed to these more serious stressors. Patient maintains that the best thing at this time is for him not to be involved in the closing of the business. Despite this, he continues to verbalize frus tration regarding how his and other supports have been managing things in his absence. Given that he responded to these stressors with SI and inability to contract for safety, it is highly likely that this response would continue on an outpatient basis if patient were discharged to this ongoing situation without adequate coping strategies. Based on his limited willingness to address outpati ent stressors and a rather rapid decompensation following his last hospitalization, inpatient psychiatric treatment remains medically necessary. He remains at risk of suicide if he is discharged prematurely. (1) Suicidal thoughts: 01/28 - Admitted to a locked inpatient behavioral health unit, on q15 minute safety checks - Encourage medication initiation/adjustments as indicated - Encourage participation in group and recreational therapies - Gather collateral information from outpatient providers - Suggest family meeting to involve outpatient supports in safety planning - Arrange appropriate aftercare 01/29 - confirmed with staff that guns are secured and patient does not have access to them. 02/01 - Reporting SI worse than at time of admission, as he was informed of issues related to closing his business - including legal ramifications - Reports inability to contract for safety outside of the hospital setting (2) Anxiety: 01/28 - Titrate sertraline to 150mg daily to target worsening depression and anxiety - Hydroxyzine available as needed for anxiety; will have 150mg of hydroxyzine available for sleep this evening - Encouraged development of healthy and effective coping strategies - Process stressors as needed 1:1 with counselors - Recommend family meeting with outpatient supports to discuss any additional needs 01/29 - SW to contact his therapist to determine if he can be seen more frequently, and if not, will explore other options - He states he and his talked about it, and are willing to pay out of pocket if needed. - Confirm psychiatric appointment at [facility] and send records to coordinate care. - Schedule family meeting with . - Continue sertraline 150mg for now, monitor increased nervousness (reports shakiness and heart racing), consider increase to 200mg daily tomorrow. - Patient would like to try a higher dose of trazodone for sleep, and states he does not think he will need the as needed trazodone during the day for anxiety here, so less risk of serotonin syndrome. Will discontinue hydroxyzine and order trazodone 150 mg at bedtime, with an additional 50 mg dose as needed. 01/30 - Hold titration of sertraline to 200mg until tomorrow, at patient's request - Family meeting with yesterday - supportive, guns secured - Continue trazodone 150mg qHS, as felt to be effective for sleep - Encourage development of healthy coping strategies, assist with processing stressors rather than avoidance 01/31 - Pt to receive additional 50mg dose of sertraline this afternoon, will increase to 200mg daily tomorrow morning - Continue trazodone 150mg for sleep - Continue to encourage patient in addressing stressors rather than avoidance 02/01 - Continue sertraline 200mg, first dose this morning - Continue trazodone 150mg qHS - Received 1 one-time dose of trazodone 50mg after anxiety-provoking family meeting with - Continue to encourage patient to address stressors and develop a way of coping with the anxiety related to closing his business (3) Depression: 01/28 - Titrate sertraline as above 01/30 - As above, has not needed prns as feels he is removed from stressors (4) Hypertension: 01/28 - Continue home dose of lisinopril 10mg; consider need for further titration after observing readings. Inventory Assets Strengths: Willingness for treatment, support from , Needs: Increased frequency of therapy visits, development of healthy and effective coping strategies to manage anxiety Risk Factors Assessment Male: Yes : Yes Do You Have Access To A Gun?: No (secured during last admission) Health Problems: Yes (Hypertension) Mental Health Diagnoses: Yes Substance Use Disorders: No Previous Attempt: No Family History of Suicide: Yes Previous Psychiatric Hospitalization: Yes Hopelessness: Yes Smoker: No Protective Factors Assessment Mu-Ism Beliefs: No : Yes Responsible for Young Children: Yes Employed: No Stable Relationships: Yes Supportive Family: Yes Interval History Identifying Information SNEHA LOVELACE is a 38-year-old M who currently lives in [place] with his and daughter. Pt has a history of depression and anxiety, and was admitted on 01/27/19 17:25 on a 201 voluntary commitment for worsening symptoms in combination with suicidal ideation. Chief Complaint "It was not a good day yesterday. A lot of unexpected stuff came up." Review of Systems Notes Constitutional: reports increased anxiety and restlessness Cardiovascular: denied Respiratory: denied Gastrointestinal: denied Neurological: denied Psychiatric: denies symptoms other than stated above Total of at least 10 systems reviewed, pertinent positives as above and in HPI. Sleep Information Total Hours of Sleep: 7.25 Sleep Comments: snores loudly when laying on his back and more softly on his side Meal Information Percent Meal Consumed - Breakfast: 100 Percent Meal Consumed - Lunch: 100 Percent Meal Consumed - Dinner: 100 Subjective Subjective Patient was seen & assessed and interval progress reviewed during report with nursing and social work. Staff report the patient decompensated rather significantly last evening after having an urgently scheduled meeting with his . Pt was informed that there are now legal ramifications associated with the closing of his business. had discussed difficulty obtaining a loan to pay off customers and had informed patient that he is being sued by some of his clients as well. Patient was reportedly very distressed and verbalized suicidality following this meeting, stating he did not feel that he would be able to contract for safety for discharge as planned. Patient was seen today to assess progress since admission. He shares with this provider some of the updates provided to him from his . Patient shares his opinion that he believes his "pushed everything off until the last minute. We had plans for every scenario, she should have come to me if there are issues." Patient was challenged on the fact that he is now requesting that his had communicated with him, but has also been verbalizing a clear request that people not discuss the closing of his business in order to reduce his anxiety. Patient states "I do not need to know about the little things, but the big thing she should be telling me about." He states "I was just so frustrated last evening, I thought everything was being taking care of, but it is not - and this isn't the first time." This provider attempted to process with the patient about the importance of his involvement with the business closing, stating that he is likely more equipped to manage "the little things" than his and that it is very likely that the little things are becoming larger problems due to his avoidance of the situation. Patient continues to be in denial, and still believes that the best action is for him to be involved as little as possible in this process. Patient does admit that he was largely affected by this meeting and states "I was very very depressed last night after she left. I told her to leave, I just could not handle it anymore." Patient admits to suicidal ideation in the context of learning of the stressors. The patient states "I feel worse than Sunday when I first came here." Patient admits to some ongoing suicidal thought, and continues to be resistant to processing these stressors with staff as he maintains the belief that it is better for these triggers to not be discussed. Patient denies other needs or concerns at this time. Physical Exam Psychiatric Orientation: alert, oriented x 3 and cooperative (only superficially) Apperance: appropriately dressed (casually dressed in t-shirt and sweat pants) and appeared stated age Eye Contact: good eye contact Motor Behavior: steady gait and station and no abnormal motor movements Speech: normal rate/rhythm/volume of speech Affect: no depressed affect, no anxious affect and + mood not congruent with affect reporting significantly worsened anxiety and depression, though appears calm for the duration of our conversation Mood: + depressed mood and + angry mood "I feel so much worse than Sunday when I first came in here" and "the anger gets so severe it can push me over the edge" Thought Process: goal directed thought process and clear/coherent thought pro cess Thought Content: + cognitive distortions and reality based without delusions Suicidal Thoughts: denies suicidal plan (thoughts continue to be to jump from a building/parking garage); + reports suicidal thoughts (reporting SI is now worse than when he initially presented for admission) Homicidal Thoughts: denies homicidal thoughts Hallucinations: no auditory hallucinations and no visual hallucinations Cognition: remote memory grossly intact, attention grossly intact and language grossly intact Estimated Intelligence: consistent with education level Insight: + poor insight Judgement: + poor judgement Vital Signs (Past 24 Hours) Last Vital Signs Temp 36.4 C L 02/01/19 06:31 Pulse 88 02/01/19 06:32 Resp 18 02/01/19 06:31 BP 121/87 02/01/19 06:32 Pulse Ox 97 01/27/19 18:08 Results & Data Current Inpatient Medications Current Inpatient Medications: Current Inpatient Medications Acetaminophen (Tylenol) 650 mg PO Q4H PRN PRN Reason: Headache or Minor Fever Stop: 02/26/19 17:23 Al Hydrox/Mg Hydrox/Simethicone (Maalox) 30 ml PO Q4H PRN PRN Reason: GI Upset Stop: 02/26/19 17:23 Bismuth Subsalicylate (Kaopectate) 15 ml PO PRN PRN PRN Reason: Loose Stool Stop: 02/26/19 17:23 Hydroxyzine HCl (Vistaril) 25 mg PO Q4H PRN PRN Reason: Anxiety Stop: 02/26/19 17:23 Lisinopril (Zestril) 10 mg PO QAM DERECK Stop: 02/27/19 08:59 Last Admin: 02/01/19 08:06 Dose: 10 mg Documented by: Magnesium Hydroxide (Milk Of Magnesia) 30 ml PO DAILY PRN PRN Reason: Heartburn Stop: 02/26/19 17:23 Sertraline HCl (Zoloft) 200 mg PO QAM DERECK Stop: 03/03/19 08:59 Last Admin: 02/01/19 08:06 Dose: 200 mg Documented by: Sodium Chloride ([place] Nasal) 1 - 2 sprays NA PRN PRN PRN Reason: Nasal Dryness/Congestion Stop: 02/26/19 17:23 Trazodone HCl (Desyrel) 50 mg PO HS PRN PRN Reason: insomnia Stop: 02/26/19 17:26 Last Admin: 01/27/19 22:28 Dose: 50 mg Documented by: Trazodone HCl (Desyrel) 150 mg PO HS DERECK Stop: 02/28/19 21:59 Last Admin: 01/31/19 21:37 Dose: 150 mg Documented by: Post Discharge Appointments Primary Care Physician Name Of Family Doctor: Shelly David DO Primary Care Time of Appointment with PCP: Follow up as needed. Provider Appointment Comment: [place] [address] Psychiatrist Name of Psychiatrist: Shelly Gtz Psychiatrist's Date of Appointment with Psychiatrist: 02/13/19 Psychiatric Appointment Comment: [place] [address] Therapist Name of Therapist: Shelly Madrigal Therapist's Date of Therapist Appointment: 02/24/19 Time of Therapist Appointment: 9am Therapy Appointment Comment: [place] [address] Fabrication Machine Operator Name of Fabrication Machine Operator: . Other #1: [facility] Phone Number of Aftercare Appointment: [phone] Date of Aftercare Appointment: 02/04/19 Time of Aftercare Appointment: 2:00 pm Contact Information Discharge Discharge Address: [address] [place] [address] [place] [address] CPT Code CPT Code 24231 (1) Depression Depression Type: unspecified Qualified Code(s): F32.9 - Major depressive disorder, single episode, unspecified
[2019-02-01] MEDS: TRAZODONE HCL 100 MG TAB PO SCH (21:41)
--- NOTE | 2019-02-02 07:48 | Psychiatric Progress Note ---
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 Patient participated in an unexpected meeting with his recently, and was informed of her difficulty obtaining a loan, that he is being sued, and that she is not able to handle this closing as well as they had planned. Given that he responded to these stressors with SI and inability to contract for safety, it is highly likely that this response would continue on an outpatient basis if patient were discharged to this ongoing situation without adequate coping strategies. Based on his limited willingness to address outpatient stressors and a rather rapid decompensation following his last hospitalization, inpatient psychiatric treatment remains medically necessary. He remains at risk of suicide if he is discharged prematurely. (1) Suicidal thoughts: 01/28 - Admitted to a locked inpatient behavioral health unit, on q15 minute safety checks - Encourage medication initiation/adjustments as indicated - Encourage participation in group and recreational therapies - Gather collateral information from outpatient providers - Suggest family meeting to involve outpatient supports in safety planning - Arrange appropriate aftercare 01/29 - confirmed with staff that guns are secured and patient does not have access to them. 02/01 - Reporting SI worse than at time of admission, as he was informed of issues related to closing his business - including legal ramifications - Reports inability to contract for safety outside of the hospital setting (2) Anxiety: 01/28 - Titrate sertraline to 150mg daily to target worsening depression and anxiety - Hydroxyzine available as needed for anxiety; will have 150mg of hydroxyzine available for sleep this evening - Encouraged development of healthy and effective coping strategies - Process stressors as needed 1:1 with counselors - Recommend family meeting with outpatient supports to discuss any additional needs 01/29 - SW to contact his therapist to determine if he can be seen more frequently, and if not, will explore other options - He states he and his talked about it, and are willing to pay out of pocket if needed. - Confirm psychiatric appointment at [facility] and send records to coordinate care. - Schedule family meeting with . - Continue sertraline 150mg for now, monitor increased nervousness (reports shakiness and heart racing), consider increase to 200mg daily tomorrow. - Patient would like to try a higher dose of trazodone for sleep, and states he does not think he will need the as needed trazodone during the day for anx iety here, so less risk of serotonin syndrome. Will discontinue hydroxyzine and order trazodone 150 mg at bedtime, with an additional 50 mg dose as needed. 01/30 - Hold titration of sertraline to 200mg until tomorrow, at patient's request - Family meeting with yesterday - supportive, guns secured - Continue trazodone 150mg qHS, as felt to be effective for sleep - Encourage development of healthy coping strategies, assist with processing stressors rather than avoidance 01/31 - Pt to receive additional 50mg dose of sertraline this afternoon, will increase to 200mg daily tomorrow morning - Continue trazodone 150mg for sleep - Continue to encourage patient in addressing stressors rather than avoidance 02/01 - Continue sertraline 200mg, first dose this morning - Continue trazodone 150mg qHS - Received 1 one-time dose of trazodone 50mg after anxiety-provoking family meeting with - Continue to encourage patient to address stressors and develop a way of coping with the anxiety related to closing his business 02/02 - Continue current medication regimen unchanged - Attempt to assist patient in plan to utilize coping strategies to effectively manage anxiety (3) Depression: 01/28 - Titrate sertraline as above 01/30 - As above, has not needed prns as feels he is removed from stressors (4) Hypertension: 01/28 - Continue home dose of lisinopril 10mg; consider need for further titration after observing readings. Inventory Assets Strengths: Willingness for treatment, support from , Needs: Increased frequency of therapy visits, development of healthy and effective coping strategies to manage anxiety Risk Factors Assessment Male: Yes : Yes Do You Have Access To A Gun?: No (secured during last admission) Health Problems: Yes (Hypertension) Mental Health Diagnoses: Yes Substance Use Disorders: No Previous Attempt: No Family History of Suicide: Yes Previous Psychiatric Hospitalization: Yes Hopelessness: Yes Smoker: No Protective Factors Assessment Druze Beliefs: No : Yes Responsible for Young Children: Yes Employed: No Stable Relationships: Yes Supportive Family: Yes Interval History Identifying Information SNEHA LOVELACE is a 38-year-old M who currently lives in [place] with his and daughter. Pt has a history of depression and anxiety, and was admitted on 01/27/19 17:25 on a 201 voluntary commitment for worsening symptoms in combination with suicidal ideation. Chief Complaint "Better. But my sleep sure went haywire last night." Review of Systems Notes Constitutional: reports poor, restless sleep last evening Cardiovascular: denied Respiratory: denied Gastrointestinal: denied Neurological: denied Psychiatric: denies symptoms other than stated above Total of at least 10 systems reviewed, pertinent positives as above and in HPI. Sleep Information Total Hours of Sleep: 6 Sleep Comments: snores loudly when laying on his back and more softly on his side Meal Information Percent Meal Consumed - Breakfast: 100 Percent Meal Consumed - Lunch: 100 Percent Meal Consumed - Dinner: 100 Subjective Subjective Patient was seen & assessed and interval progress reviewed during report with nursing and social work. Staff reports the patient received visits from his parents, , and daughter last evening. He continues to desire to take the route of avoidance with regard to his ongoing work issues. Patient was seen today to assess progress since admission. He admits that he is feeling "better" today than yesterday. He does feel that his sleep was disrupted last evening, and questions if titration of sertraline is responsible for this. Patient reports feeling as though it was difficult for him to fall asleep and describes a significant amount of racing thoughts "of no particular importance" that were occurring last evening. Patient was open to discussing some aspects of sleep hygiene, as this provider was informed that patient had been watching television after taking his scheduled dose of trazodone. Patient was encouraged tonight to participate in a more relaxing activity in order to encourage sleep, which she was agreeable to try. Patient reports feeling "a little bit jittery yesterday, with some heart pounding." Patient continues to feel that these symptoms are related to titration of sertraline, but resolve within a day of dose changes. Patient is agreeable to continuing current medication regimen unchanged, with focus on therapeutic interventions regarding his ability to manage stressors outside of this controlled environment. Patient denies other needs or concerns at this time. Physical Exam Psychiatric Orientation: alert, oriented x 3 and cooperative (Superficially) Apperance: appropriately dressed (Casually in T-shirt and sweat pants), appropri ately groomed and appeared stated age Eye Contact: good eye contact Motor Behavior: steady gait and station and no abnormal motor movements Speech: normal rate/rhythm/volume of speech Affect: no depressed affect and no anxious affect Mood: + depressed mood "A little better than yesterday" Thought Process: goal directed thought process and clear/coherent thought process Thought Content: reality based without delusions Suicidal Thoughts: + reports suicidal thoughts (Reduced presence, but continued to be verbalized option) Homicidal Thoughts: denies homicidal thoughts Hallucinations: no auditory hallucinations and no visual hallucinations Cognition: attention grossly intact and language grossly intact Estimated Intelligence: consistent with education level Insight: + fair insight Judgement: + fair judgement Vital Signs (Past 24 Hours) Last Vital Signs Temp 36.6 C 02/02/19 06:52 Pulse 106 H 02/02/19 06:53 Resp 18 02/02/19 06:52 BP 126/88 02/02/19 06:53 Pulse Ox 97 01/27/19 18:08 Results & Data Current Inpatient Medications Current Inpatient Medications: Current Inpatient Medications Acetaminophen (Tylenol) 650 mg PO Q4H PRN PRN Reason: Headache or Minor Fever Stop: 02/26/19 17:23 Al Hydrox/Mg Hydrox/Simethicone (Maalox) 30 ml PO Q4H PRN PRN Reason: GI Upset Stop: 02/26/19 17:23 Bismuth Subsalicylate (Kaopectate) 15 ml PO PRN PRN PRN Reason: Loose Stool Stop: 02/26/19 17:23 Hydroxyzine HCl (Vistaril) 25 mg PO Q4H PRN PRN Reason: Anxiety Stop: 02/26/19 17:23 Lisinopril (Zestril) 10 mg PO QAM [facility] Stop: 02/27/19 08:59 Last Admin: 02/01/19 08:06 Dose: 10 mg Documented by: Magnesium Hydroxide (Milk Of Magnesia) 30 ml PO DAILY PRN PRN Reason: Heartburn Stop: 02/26/19 17:23 Sertraline HCl (Zoloft) 200 mg PO QAM [facility] Stop: 03/03/19 08:59 Last Admin: 02/01/19 08:06 Dose: 200 mg Documented by: Sodium Chloride ([place] Nasal) 1 - 2 sprays NA PRN PRN PRN Reason: Nasal Dryness/Congestion Stop: 02/26/19 17:23 Trazodone HCl (Desyrel) 50 mg PO HS PRN PRN Reason: insomnia Stop: 02/26/19 17:26 Last Admin: 01/27/19 22:28 Dose: 50 mg Documented by: Trazodone HCl (Desyrel) 150 mg PO HS [facility]ERECK Stop: 02/28/19 21:59 Last Admin: 02/01/19 21:41 Dose: 150 mg Documented by: Post Discharge Appointments Primary Care Physician Name Of Family Doctor: Shelly David DO Primary Care Time of Appointment with PCP: Follow up as needed. Provider Appointment Comment: [place] [id number] Psychiatrist Name of Psychiatrist: Shelly Gtz Psychiatrist's Date of Appointment with Psychiatrist: 02/13/19 Psychiatric Appointment Comment: [place] [address] Therapist Name of Therapist: Shelly Madrigal Therapist's Date of Therapist Appointment: 02/24/19 Time of Therapist Appointment: 9am Therapy Appointment Comment: [place] [address] Custom Tailor Apprentice Name of Custom Tailor Apprentice: . Other #1: [facility] Phone Number of Aftercare Appointment: [phone] Date of Aftercare Appointment: 02/04/19 Time of Aftercare Appointment: 2:00 pm Contact Information Discharge Discharge Address: [address] [place] [address] MELANI Jaquez [id number] CPT Code CPT Code 41573 (1) Depression Depression Type: unspecified Qualified Code(s): F32.9 - Major depressive disorder, single episode, unspecified
[2019-02-02] MEDS: SERTRALINE HCL 100 MG TABLET PO SCH (07:59)
[2019-02-02] MEDS: LISINOPRIL 10 MG TAB PO SCH (07:59)
[2019-02-02] MEDS: TRAZODONE HCL 100 MG TAB PO SCH (23:09)
[2019-02-03] MEDS: LISINOPRIL 10 MG TAB PO SCH (08:11)
[2019-02-03] MEDS: SERTRALINE HCL 100 MG TABLET PO SCH (08:11)
--- NOTE | 2019-02-03 10:38 | Psychiatric Progress Note ---
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 Patient participated in an unexpected meeting with his recently, and was informed of her difficulty obtaining a loan, that he is being sued, and that she is not able to handle this closing as well as they had planned. What is most concerning at this time is patient's history of acute suicidality in the context of work stressors. These concerns are what led to his initial admission, his readmission only weeks later, and the onset of acute suicidality in the context of the family meeting here on the unit. Patient continues to minimize these business related stressors and feels he would be able to manage anxiety on an outpatient basis, despite inability to verbalize any coping strategies or behavioral plans that have been effective. We will attempt to discuss with patient's whether she feels comfortable with patient returning home. Based on his limited willingness to address outpatient stressors and a rather rapid decompensation following his last hospitalization, inpatient psychiatric treatment remains medically necessary. Patient remains at a concerningly high risk of suicide if he is discharged prematurely. Given the likely length of legal proceedings and other business- related stressors, it is felt at this time that he has inadequate coping strategies to effectively manage his anxiety, depression, and suicidal ideation without frequent readmissions or an actual attempt to harm himself. (1) Suicidal thoughts: 01/28 - Admitted to a locked inpatient behavioral health unit, on q15 minute safety checks - Encourage medication initiation/adjustments as indicated - Encourage participation in group and recreational therapies - Gather collateral information from outpatient providers - Suggest family meeting to involve outpatient supports in safety planning - Arrange appropriate aftercare 01/29 - confirmed with staff that guns are secured and patient does not have access to them. 02/01 - Reporting SI worse than at time of admission, as he was informed of issues related to closing his business - including legal ramifications - Reports inability to contract for safety outside of the hospital setting 02/03 - Denies SI today, though continues to minimize the stressors that contribute to his desires to end his life (2) Anxiety: 01/28 - Titrate sertraline to 150mg daily to target worsening depression and anxiety - Hydroxyzine available as needed for anxiety; will have 150mg of hydroxyzine available for sleep this evening - Encouraged development of healthy and effective coping strategies - Process stressors as needed 1:1 with counselors - Recommend family meeting with outpatient supports to discuss any additional needs 01/29 - SW to contact his therapist to determine if he can be seen more frequently, and if not, will explore other options - He states he and his talked about it, and are willing to pay out of pocket if needed. - Confirm psychiatric appointment at [facility] and send records to coordinate care. - Schedule family meeting with . - Continue sertraline 150mg for now, monitor increased nervousness (reports shakiness and heart racing), consider increase to 200mg daily tomorrow. - Patient would like to try a higher dose of trazodone for sleep, and states he does not think he will need the as needed trazodone during the day for anxiety here, so less risk of serotonin syndrome. Will discontinue hydroxyzine and order trazodone 150 mg at bedtime, with an additional 50 mg dose as needed. 01/30 - Hold titration of sertraline to 200mg until tomorrow, at patient's request - Family meeting with yesterday - supportive, guns secured - Continue trazodone 150mg qHS, as felt to be effective for sleep - Encourage development of healthy coping strategies, assist with processing stressors rather than avoidance 01/31 - Pt to receive additional 50mg dose of sertraline this afternoon, will increase to 200mg daily tomorrow morning - Continue trazodone 150mg for sleep - Continue to encourage patient in addressing stressors rather than avoidance 02/01 - Continue sertraline 200mg, first dose this morning - Continue trazodone 150mg qHS - Received 1 one-time dose of trazodone 50mg after anxiety-provoking family meeting with - Continue to encourage patient to address stressors and develop a way of coping with the anxiety related to closing his business 02/02 - Continue current medication regimen unchanged - Attempt to assist patient in plan to utilize coping strategies to effectively manage anxiety 02/03 - Continue current medication regimen - Continue to encourage patient to discuss stressors and develop effective coping strategies to manage anxiety - Pt informed of the importance of this, as the reality is that his stressors are very likely to be serious and ongoing for quite some time (3) Depression: 01/28 - Titrate sertraline as above 01/30 - As above, has not needed prns as feels he is removed from stressors 02/03 - Continue current medication regimen (4) Hypertension: 01/28 - Continue home dose of lisinopril 10mg; consider need for further titration after observing readings. 02/03 - Blood pressures have been rather decent since after his first day of hospitalization - continue to observe readings Inventory Assets Strengths: Willingness for treatment, support from , Needs: Increased frequency of therapy visits, development of healthy and effective coping strategies to manage anxiety Risk Factors Assessment Male: Yes : Yes Do You Have Access To A Gun?: No (secured during last admission) Health Problems: Yes (Hypertension) Mental Health Diagnoses: Yes Substance Use Disorders: No Previous Attempt: No Family History of Suicide: Yes Previous Psychiatric Hospitalization: Yes Hopelessness: Yes Smoker: No Protective Factors Assessment Episcopalian Beliefs: No : Yes Responsible for Young Children: Yes Employed: No Stable Relationships: Yes Supportive Family: Yes Interval History Identifying Information SNEHA LOVELACE is a 38-year-old M who currently lives in [place] with his and daughter. Pt has a history of depression and anxiety, and was admitted on 01/27/19 17:25 on a 201 voluntary commitment for worsening symptoms in combination with suicidal ideation. Chief Complaint "I was a little disappointed this morning. Mostly about my length of stay." Review of Systems Notes Constitutional: reports a few occasions of restlessness and "heart beating pretty hard" Cardiovascular: denied Respiratory: denied Gastrointestinal: mild episodic nausea reported throughout the day yesterday Neurological: denied Psychiatric: denies symptoms other than stated above Total of at least 10 systems reviewed, pertinent positives as above and in HPI. Sleep Information Total Hours of Sleep: 6 Sleep Comments: pt on q-15 minute checks Meal Information Percent Meal Consumed - Breakfast: 100 Percent Meal Consumed - Lunch: 100 Percent Meal Consumed - Dinner: 100 Subjective Subjective Patient was seen & assessed and interval progress reviewed with Treatment Team. Staff reports the patient continues to participate in group and recreational programming. He is supportive of peers and provides beneficial insight, but remains resistant to discussing his own stressors and the impact likely legal proceedings will have on his mental health. Patient was seen today to assess progress since admission. He states that he is "doing better", but admits he is somewhat disappointed about his length of stay. Provider has made daily attempts to have honest conversations with the patient about how he plans to manage his anxiety after discharge. Patient is somewhat more receptive to this conversation today, but continues to minimize the severity of the stressors associated with closing his business. This provider mentioned staff's concern regarding his avoidance of discussing anything related to closing his business. Pt acknowledges that he was suicidal after receiving news from his regarding some of the more complicated factors, but now states he is "at peace with the whole thing." Pt is unable to follow that statement with any constructive ways in which he plans to manage these stressors and avoid recurrence of SI or readmission. Pt does admit his sleep was better last evening. He endorses some intermittent restlessness yesterday, but denies any concerns thus far this morning. Pt was encouraged to consider staff's concerns with his lack of coping strategies, and was informed we would likely be calling his prior to discharge to ensure she felt comfortable with him returning home. Pt denied any other needs or concerns today. Physical Exam Psychiatric Orientation: alert, oriented x 3 and cooperative Apperance: appropriately dressed (Casually in a T-shirt and sweatpants) and appropriately groomed Eye Contact: good eye contact Motor Behavior: steady gait and station and no abnormal motor movements Speech: normal rate/rhythm/volume of speech Affect: + blunted affect "I feel fine, as long as I am not anxious about anything" Thought Process: goal directed thought process and clear/coherent thought process Thought Content: reality based without delusions Suicidal Thoughts: denies suicidal thoughts Homicidal Thoughts: denies homicidal thoughts Hallucinations: no auditory hallucinations and no visual hallucinations Cognition: attention grossly intact and language grossly intact Insight: + fair insight Judgement: + fair judgement Vital Signs (Past 24 Hours) Last Vital Signs Temp 36.6 C 02/03/19 06:52 Pulse 102 H 02/03/19 06:53 Resp 18 02/03/19 06:52 BP 126/88 02/03/19 06:53 Pulse Ox 97 01/27/19 18:08 Results & Data Current Inpatient Medications Current Inpatient Medications: Current Inpatient Medications Acetaminophen (Tylenol) 650 mg PO Q4H PRN PRN Reason: Headache or Minor Fever Stop: 02/26/19 17:23 Al Hydrox/Mg Hydrox/Simethicone (Maalox) 30 ml PO Q4H PRN PRN Reason: GI Upset Stop: 02/26/19 17:23 Bismuth Subsalicylate (Kaopectate) 15 ml PO PRN PRN PRN Reason: Loose Stool Stop: 02/26/19 17:23 Hydroxyzine HCl (Vistaril) 25 mg PO Q4H PRN PRN Reason: Anxiety Stop: 02/26/19 17:23 Lisinopril (Zestril) 10 mg PO QAM [facility] Stop: 02/27/19 08:59 Last Admin: 02/03/19 08:11 Dose: 10 mg Documented by: Magnesium Hydroxide (Milk Of Magnesia) 30 ml PO DAILY PRN PRN Reason: Heartburn Stop: 02/26/19 17:23 Sertraline HCl (Zoloft) 200 mg PO QAM [facility] Stop: 03/03/19 08:59 Last Admin: 02/03/19 08:11 Dose: 200 mg Documented by: Sodium Chloride ([place] Nasal) 1 - 2 sprays NA PRN PRN PRN Reason: Nasal Dryness/Congestion Stop: 02/26/19 17:23 Trazodone HCl (Desyrel) 50 mg PO HS PRN PRN Reason: insomnia Stop: 02/26/19 17:26 Last Admin: 01/27/19 22:28 Dose: 50 mg Documented by: Trazodone HCl (Desyrel) 150 mg PO HS [facility] Stop: 02/28/19 21:59 Last Admin: 02/02/19 23:09 Dose: 150 mg Documented by: Mental [facility] Subst Abuse Tx Psychiatrist Name of Psychiatrist: Shelly Gtz Psychiatrist's Date of Appointment with Psychiatrist: 02/13/19 Psychiatric Appointment Comment: [place] [id number] Therapist Name of Therapist: Shelly Madrigal Therapist's Date of Therapist Appointment: 02/24/19 Time of Therapist Appointment: 9am Therapy Appointment Comment: [place] [address] Boiling Tub Operator Name of Boiling Tub Operator: . Post Discharge Appointments Primary Care Physician Name Of Family Doctor: Shelly David DO Primary Care Time of Appointment with PCP: Follow up as needed. Provider Appointment Comment: [place] [id number] Other #1: Name of Aftercare Appointment: [facility] Aaron marcy Phone Number of Aftercare Appointment: [phone] Date of Aftercare Appointment: 02/04/19 Time of Aftercare Appointment: 2:00 pm Contact Information Discharge Discharge Address: [address] [place] [address] [place] Jaquez [address] CPT Code CPT Code 70659 (1) Depression Depression Type: unspecified Qualified Code(s): F32.9 - Major depressive disorder, single episode, unspecified
[2019-02-03] MEDS: TRAZODONE HCL 100 MG TAB PO SCH (23:00)
[2019-02-04] MEDS: LISINOPRIL 10 MG TAB PO SCH (08:04)
[2019-02-04] MEDS: SERTRALINE HCL 100 MG TABLET PO SCH (08:04)
--- NOTE | 2019-02-04 09:35 | Discharge Summary ---
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 Non-emergency contact: Primary Care Provider, Psychiatrist and Therapist Call non-emergency contact if: you have any medication questions and your symptoms worsen Follow-up/Referrals: Roni Dvaid DO [Primary Care Provider] - Diet: Regular Addtl Provider Instructions: SPECIAL CARE INSTRUCTIONS: 1. Follow through with your scheduled aftercare appointments. If unable to keep an appointment, please call to reschedule. 2. Take your medication only as prescribed. Medication should not be changed or stopped without the approval of your doctor. In the event of worsening symptoms or concerns about side effects, contact your doctor immediately. 3. Utilize new healthy coping skills, anger management skills, and stress management skills learned during your hospitalization. Journal feelings and process them with a support person. Identify stressors or situations that may result in relapse, deterioration or inappropriate behaviors and develop a plan to deal with those issues. 4. If your coping skills are ineffective and you are in crisis, contact your outpatient providers for direction. If unable to reach your providers, please call the CAN HELP LINE AT or go to the closest Emergency Room. 5. Avoid alcohol and un-prescribed drugs. 6. You have been provided with the Mental Health Advance Directives Pamphlet for your review. AFTERCARE APPOINTMENTS: * Please call your insurance company prior to your scheduled appointment to confirm your aftercare providers are covered. Take your insurance information to your appointments. WHO TO CALL AND WHEN: Medical Emergencies: For questions or emergencies related to your hospital stay, please contact the Inpatient Behavioral Health Unit at [phone]. A logging truck driver is on-call 26/02 for the Behavioral Health Unit for emergencies At any time you feel your situation is an emergency, you may also call 911 immediately. Your Doctors Instructions noted above were prepared by provider Jodie Mao PA-C. Prescriptions: New sertraline 100 mg Tablet 200 mg PO QAM 30 Days Qty: 60 RF: 0 trazodone 100 mg Tablet 150 mg PO HS 30 Days Qty: 45 RF: 0 Continued lisinopril 10 mg Tablet 10 mg PO QAM Qty: 30 RF: 0 Discontinued sertraline 100 mg Tablet 100 mg PO QAM Qty: 30 RF: 0 trazodone 50 mg tablet 50 mg PO HS PRN (Reason: insomnia) Qty: 60 RF: 0 Stand-Alone Forms: [facility] Discharge Orders: Discharge Order (Routine); Ordered 02/04/19 Ordered By: Jodie Mao Admission Data Admit Date/Time: 01/27/19 17:25 Attending Provider: Nemo Jewell Admit Provider: Nemo Jewell Primary Care Provider: Roni David Service: Psychiatry Other Interventions: Discharge Summary Assessment (RN) Last Done: 02/04/19 12:57 PSY Interdisciplinary Discharge Planning Last Done: 02/04/19 12:56 Pending Studies at Discharge: No DC Date/Time DO NOT enter until pt leaves facility: 02/04/19 13:21
== END 2019-02-05 04:28 | disposition home or self-care (01) | DRG 881 ==
LOC: ED 11:22 → 3S 17:25